=== PATIENT | female | born 1940 | race Caucasian/White ===

== ENCOUNTER 2019-05-05 15:26 | Outpatient (CLI) | payer MEDICARE, SELFPAY ==
--- NOTE | ~2019-05-05 | MM_ITS ---
EXAMINATION: MM screening [facility] BI w verenice HISTORY: Screening mammogram TECHNIQUE: Craniocaudal and mediolateral oblique 3-D tomosynthesis images were obtained and synthetic 2-D images were generated. CAD analysis was submitted and interpreted. COMPARISON: Comparison to multiple prior studies sequentially, with oldest reviewed study dated 07/2013. BREAST PARENCHYMAL COMPOSITION: There are scattered areas of fibroglandular density. FINDINGS: There is no evidence of suspicious mass, calcification, or architectural distortion to sugg est malignancy in either breast. There has been no suspicious interval change. IMPRESSION: 1. No mammographic evidence of malignancy. 2. Recommend routine screening mammography in one year. BI-RADS Category 1: Negative Reviewed, dictated and finalized at location A. K TURNER
== END 2019-05-05 15:27 | disposition home or self-care (01) ==
LOC: ANHIMG 15:32
PROVIDERS: PCP Family Medicine; Visit Provider Family Medicine
DX: Z12.31 Encounter for screening mammogram for malignant neoplasm of breast (principal)
CPT/HCPCS: 77063; 77067

== ENCOUNTER 2020-06-17 14:04 | Outpatient (CLI) | payer MEDICARE, SELFPAY ==
--- NOTE | ~2020-06-17 | DEXA_ITS ---
Bone Density Report Name: Adore Newell Age: 80 Sex: Female Ethnicity: White Date of : 1940 Indication: osteopenia; monitoring treatment; parental hip fracture; cancer; Referring Provider: IVANA, CHASIDY Smith Study: Bone densitometry was performed. Exam Date: June 17, 2020 Accession number: [id number] Bone Density: Region BMD T-score Z-score Classification AP Spine (L1-L4) 0.815 -2.1 0.7 Osteopenia Femoral Neck (Left) 0.634 -1.9 0.5 Osteopenia Total Hip (Left) 0.853 -0.7 1.5 Normal Total Hip Bilateral Avg 0.831 -0.9 1.3 Normal Femoral Neck (Right) 0.697 -1.4 1.0 Osteopenia Total Hip (Right) 0.808 -1.1 1.1 Osteopenia World Health Organization criteria for BMD impression classify patients as: Normal (T-score at or above -1.0), Osteopenia (T-score between -1.0 and -2.5), or Osteoporosis (T-score at or below -2.5). 10-year Fracture Risk: FRAX not reported because: Treated for osteoporosis Previous Exams: Region Exam Age BMD T-score BMD Change BMD Change Date g/cm2 vs Baseline vs Previous AP Spine(L1-L4) 06/17/2020 80 0.815 -2.1 0.072(9.7%)# 0.013(1.6%) 02/19/2018 78 0.802 -2.2 0.059(8.0%)# 0.096(13.5%)# 09/22/2015 75 0.707 -3.1 -0.037(-4.9%)* -0.037(-4.9%)* 05/20/2012 72 0.743 -2.8 Total Hip(Left) 06/17/2020 80 0.853 -0.7 -0.050(-5.5%)# -0.020(-2.3%) 02/19/2018 78 0.873 -0.6 -0.030(-3.3%)# -0.004(-0.4%)# 09/22/2015 75 0.877 -0.5 -0.026(-2.9%) -0.026(-2.9%) 05/20/2012 72 0.903 -0.3 Total Hip(Right) 06/17/2020 80 0.808 -1.1 -0.017(-2.1%)# -0.012(-1.5%) 02/19/2018 78 0.820 -1.0 -0.005(-0.6%)# -0.062(-7.0%)# 09/22/2015 75 0.882 -0.5 0.057(6.9%)* 0.057(6.9%)* 05/20/2012 72 0.826 -1.0 *Denotes significance at 95% confidence level, LSC for AP Spine = 0.022 g/cm2, LSC for Total Hip = 0.027 g/cm2 Clinical Information Provided by Patient: Parent has had a hip fracture Is being treated for osteoporosis Has used the following medications: Fosamax (i.e. alendronate) Has the following medical conditions: Cancer Patient maximum height was 62 Menopause Age: 48 No regular weight bearing exercise Drinks caffeinated beverages Onset of menses at age 10 Number of children 2 Impression: The patient has low bone mass, based on the Total Spine T-score. The patient has risk factors, including: parental hip fracture. No significant bone loss was observed. Discussion: PATIENT UNDE
--- NOTE | ~2020-06-17 | MM_ITS ---
EXAMINATION: MM screening [facility] BI w verenice HISTORY: Screening mammogram TECHNIQUE: Craniocaudal and mediolateral oblique 3-D tomosynthesis images were obtained and synthetic 2-D images were generated. CAD analysis was submitted and interpreted. COMPARISON: 05/05/2019, 02/19/2018, 01/15/2017 bilateral digital screening mammogram examinations BREAST PARENCHYMAL COMPOSITION: There are scattered areas of fibroglandular density. FINDINGS: There is no evidence of suspicious mass, calcification, or architectural distortion to sugg est malignancy in either breast. There has been no suspicious interval change. IMPRESSION: 1. No mammographic evidence of malignancy. 2. Recommend routine screening mammography in one year. BI-RADS Category 1: Negative Reviewed, dictated and finalized at location A.
== END 2020-06-17 14:05 | disposition home or self-care (01) ==
LOC: ANHIMG 14:07
PROVIDERS: PCP Family Medicine; Visit Provider Family Medicine
DX: Z12.31 Encounter for screening mammogram for malignant neoplasm of breast (principal); Z78.0 Asymptomatic menopausal state; M85.88 Other specified disorders of bone density and structure, other site; M85.852 Other specified disorders of bone density and structure, left thigh; M85.851 Other specified disorders of bone density and structure, right thigh
CPT/HCPCS: 77063; 77067; 77080

== ENCOUNTER 2021-08-14 10:02 | Outpatient (CLI) | payer MEDICARE, SELFPAY ==
--- NOTE | ~2021-08-14 | MM_ITS ---
EXAMINATION: MM screening [facility] BI w verenice HISTORY: Screening mammogram TECHNIQUE: Craniocaudal and mediolateral oblique 3-D tomosynthesis images were obtained and synthetic 2-D images were generated. CAD analysis was submitted and interpreted. COMPARISON: 06/27/2020, 05/05/2019 BREAST PARENCHYMAL COMPOSITION: There are scattered areas of fibroglandular density. FINDINGS: There is no suspicious mass, calcification, or architectural distortion to suggest malignan cy in either breast. There has been no suspicious interval change. IMPRESSION: 1. No mammographic evidence of malignancy. 2. Recommend routine screening mammography in one year. BI-RADS Category 1: Negative Reviewed, dictated and finalized at location A.
== END 2021-08-14 10:03 | disposition home or self-care (01) ==
LOC: ANHIMG 10:08
PROVIDERS: PCP Family Medicine; Visit Provider Family Medicine
DX: Z12.31 Encounter for screening mammogram for malignant neoplasm of breast (principal)
CPT/HCPCS: 77063; 77067

== ENCOUNTER 2022-08-22 14:56 | Outpatient (CLI) | payer MEDICARE, SELFPAY ==
--- NOTE | ~2022-08-22 | XR_ITS ---
PA and lateral views of the chest: Comparison: None Findings: Probable nipple shadow right lung base. Lungs are otherwise clear. No effusion or pneumotho rax. Suspected COPD. Cardiomediastinal silhouette is within normal limits. Bones and soft tissues ar e unremarkable. Impression: Probable nipple shadow right lung base, otherwise clear lungs. Consider repeat exam with nipple marke rs as indicated. Suspected COPD. Reviewed, dictated and finalized at location M. Impression: Probable nipple shadow right lung base, otherwise clear lungs. Consider repeat exam with nipple markers as indicated. Suspected COPD.
== END 2022-08-22 14:57 | disposition home or self-care (01) ==
LOC: ANHIMG 15:04
PROVIDERS: PCP Family Medicine; Visit Provider Nurse Practitioner Family
DX: J20.9 Acute bronchitis, unspecified (principal)
CPT/HCPCS: 71046

== ENCOUNTER 2023-01-04 15:13 | Outpatient (CLI) | payer MEDICARE, SELFPAY ==
--- NOTE | ~2023-01-04 | XR_ITS ---
XR chest 2V 01/04/2023 15:36 Indication: Extreme malignant neoplasm of the lung. Procedure: PA and lateral views of the chest Comparison: 08/22/2022 Findings: Nodular density right lower thorax. Recommend correlation with CT chest for further assessm ent. There is atherosclerosis of the aorta. Possible small left pleural effusion. No edema or pneumot horax. There is focal consolidation medially in the left lung base which may represent atelectasis. Impression: 1: Nodular density right lower thorax which may represent prominent nipple shadow, although parenchym al nodules not excluded. Consider correlation with CT chest. 2: Small left pleural effusion. Reviewed, dictated and finalized at location B. Impression: 1: Nodular density right lower thorax which may represent prominent nipple shad ow, although parenchymal nodules not excluded. Consider correlation with CT [facility]. 2: Small left pleural effusion.
== END 2023-01-04 15:14 | disposition home or self-care (01) ==
PROVIDERS: PCP Family Medicine; Visit Provider Family Medicine
DX: Z85.118 Personal history of other malignant neoplasm of bronchus and lung (principal); J90 Pleural effusion, not elsewhere classified
CPT/HCPCS: 71046

== ENCOUNTER 2023-02-20 10:04 | Emergency (ER) | payer MEDICARE, SELFPAY ==
--- NOTE | ~2023-02-20 | XR_ITS ---
EXAMINATION: XR lumbar spine 2-3V DATE: 02/20/2023 10:51 INDICATION: Low back pain TECHNIQUE: Anteroposterior and lateral views of the lumbar spine, and cone-down lateral view of the l umbosacral junction were obtained. COMPARISON: Chest radiograph dated 01/04/2023 FINDINGS: Bone alignment is normal. There is mild loss of vertebral body height at L1 which appears n ew since the comparison examination. Bone alignment is normal. There is mild loss of intervertebral d isc space height at multiple levels in the lumbar spine. There is mild facet joint osteoarthritis at L5-S1. Calcified atherosclerosis is noted. IMPRESSION: 1. Mild loss of vertebral body height at L1 which appears new comparison examination, possibly reflec ting acute compression fracture. Reviewed, dictated and finalized at location B. CT CARE WORKER IMPRESSION: 1. Mild loss of vertebral body height at L1 which appears new comparison examin ation, possibly reflecting acute compression fracture.
[2023-02-20 10:17] VITALS: BP 100/56; PULSE 67; RESP 20; TEMP 36.7; O2SAT 98
--- NOTE | 2023-02-20 10:27 | ED.BACK ---
HPI - Back Pain/Injury General Chief Complaint: Back Pain/Injury Stated Complaint: Fall Time Seen by Provider: 02/20/23 10:28 Source: patient Mode of arrival: ambulatory Limitations: no limitations History of Present Illness HPI Narrative: 83 yo F presents with c/o low back pain. States fell 3 days ago at home. Was rushing to get up out of recliner to answer phone. Ringing phone woke her up from nap. States got up and started walking forward and tangled up in own feet and fell backwards. Denies hitting head. Was able to get up on her own. Since fall pain across back. Ambulatory with steady gait. No weakness/numbness to LEs. No loss of bowel or bladder. Taking tylenol without relief of pain. All systems reviewed and negative except as noted above. Related Data Home Medications Medication Instructions Recorded Confirmed alendronate 70 mg tablet (Fosamax) 70 mg PO WEEKLY 03/05/19 02/20/23 amlodipine 10 mg tablet (Norvasc) 10 mg PO DAILY 03/05/19 02/20/23 aspirin 81 mg chewable tablet 81 mg PO DAILY 03/05/19 02/20/23 atorvastatin 80 mg tablet 80 mg PO DAILY 03/05/19 02/20/23 blood sugar diagnostic (Contour #10 ea 03/05/19 02/20/23 Test Strips) carvedilol 25 mg tablet 25 mg PO Q12H 03/05/19 02/20/23 donepezil 10 mg tablet (Aricept) 10 mg PO ONCE 03/05/19 02/20/23 imipramine HCl 50 mg tablet 50 mg PO BID 03/05/19 02/20/23 lisinopril 10 mg tablet 10 mg PO DAILY 03/05/19 02/20/23 mirtazapine 30 mg tablet 30 mg PO DAILY 03/05/19 02/20/23 temazepam 30 mg capsule 30 mg PO ONCE 03/05/19 02/20/23 Allergies Allergy/AdvReac Type Severity Reaction Status Date / Time oxycodone Allergy Unknown Other Verified 02/20/23 10:11 Review of Systems Review of Systems: CONSTITUTIONAL: Denies fever, chills, or sweats. EYES: Denies visual changes, redness, or discharge. ENT: Denies rhinorrhea, congestion, sore throat, or otalgia. CARDIOVASCULAR: Denies chest pain, palpitations, or edema. RESPIRATORY: Denies cough or dyspnea. GASTROINTESTINAL: Denies abdominal pain, nausea, vomiting, or diarrhea. GENITOURINARY: Denies dysuria or hematuria. SKIN: Denies rash or itching. MUSCULOSKELETAL: reports low back pain. Denies joint pain, or myalgia. NEUROLOGIC: Denies headache, numbness, or weakness. PSYCHIATRIC: Denies anxiety or depression. All other systems reviewed are negative, except as documented in HPI. FORMERLY [facility], [facility] Family History Family History (Updated 07/25/17 @ 10:46 by DOCTOR UNKNOWN) Father Family history of malignant neoplasm, Onset Age: 79 Sibling Family history of malignant neoplasm Other Family history of arthritis Social History Social History Smoking status: Never smoker Alcohol intake: never Comments At time of signature, agree with nursing past medical, surgical, social and family history. There is no relevant family history pertinent to the presenting complaint. Exam Narrative: GENERAL: This is a well-nourished, well-developed patient, in no apparent distress. HEAD: normocephalic, atraumatic. EYES: PERRL. Sclera clear/white. Vision is grossly intact. EARS: External ears normal NOSE: External nose normal THROAT: Mucous membranes moist, posterior pharynx clear. NECK: Neck supple, non-tender without lymphadenopathy, masses or thyromegaly. CARDIOVASCULAR: Regular rate and rhythm without murmurs, gallops, or rubs. RESPIRATORY: Clear to auscultation. Breath sounds equal bilaterally. No wheezes, rales, or rhonchi. SKIN: warm, Dry, intact with no suspicious lesions or rash, good texture and turgor. NEURO: awake, alert, and oriented to person, place and time. There were no obvious focal neurologic abnormalities. EXTREMITIES: No joint tenderness, effusion, or edema noted. BACK: no midline tenderness without deformity. generalized lower muscular tenderness and spasm. Course Course Level of Care: Express Care Visit Vital Signs Vital signs: Vital Signs Temperature 36.7 C 02/20/23 10:
== END 2023-02-20 11:25 | disposition home or self-care (01) ==
PROVIDERS: Emergency Provider Nurse Practitioner Family; PCP Family Medicine
DX: S32.010A Wedge compression fracture of first lumbar vertebra, initial encounter for closed fracture (principal); W19.XXXA Unspecified fall, initial encounter; E78.00 Pure hypercholesterolemia, unspecified; I10 Essential (primary) hypertension; M19.90 Unspecified osteoarthritis, unspecified site; M81.0 Age-related osteoporosis without current pathological fracture; R73.03 Prediabetes; Z79.82 Long term (current) use of aspirin
CPT/HCPCS: 72100; 99213; G0463

== ENCOUNTER 2024-01-16 13:05 | Inpatient (IN) | payer MEDICARE, SELFPAY ==
[2024-01-16] VITALS (10 sets, daily range): BP systolic 114–127; BP diastolic 44–56; PULSE 79–91; RESP 14–24; TEMP 36.6; O2SAT 87–100
--- NOTE | ~2024-01-16 | XR_ITS ---
CHEST RADIOGRAPH, PA AND LATERAL CLINICAL HISTORY: R pleural effusion . COMPARISON: 01/16/2024 TECHNIQUE: PA and lateral views of the chest. FINDINGS Redemonstration of right hilar prominence, unchanged from prior. The remainder of the cardiomediastinal silhouette is otherwise unremarkable. Decreased right-sided pleural effusion when compared with previous examination. Trace left and small right-sided pleural effusion persists. The lungs are otherwise clear. The right lung is fully inflated. IMPRESSION: Trace left and small right-sided pleural effusion. No right-sided pneumothorax following right-sided thoracentesis. Reviewed, dictated and finalized at location A. R
--- NOTE | ~2024-01-16 | US_ITS ---
EXAMINATION: US thoracentesis DATE: 01/17/2024 16:11 INDICATION: pleural effusion TECHNIQUE: The procedure and its risks, benefits, and alternatives were discussed with the patient. P otential risks discussed included bleeding, infection, and pneumothorax. The patient understood the r isks and agreed to proceed. The skin was prepped and draped in sterile fashion. 1% lidocaine was used for local anesthesia. Under ultrasound guidance, a 5 Fr catheter with trochar was advanced into the right pleural effusion. Fluid was aspirated. The catheter was removed, and a dressing was applied. Th ere were no immediate complications. FINDINGS: Ultrasound images demonstrate a right pleural effusion and the catheter within the fluid. IMPRESSION: 1. Successful ultrasound-guided thoracentesis yielding 600 mL of aaron-colored fluid. Reviewed, dictated and finalized at location A. [place] AND PROMOTIONS COORDINATOR
--- NOTE | ~2024-01-16 | XR_ITS ---
EXAMINATION: XR chest 2V DATE: 01/16/2024 15:04 INDICATION: Shortness of breath. TECHNIQUE: Frontal and lateral views of the chest were obtained. COMPARISON: Chest 2 views 01/04/2023, chest CT 07/13/14, lumbar spine radiographs 02/20/2023. FINDINGS: There are moderate-sized right and small left pleural effusions. There are airspace opaciti es at the lung bases. No pneumothorax. The heart size is normal. There is a left posterior diaphragma tic hernia that contained fat on the prior CT. There is a burst fracture of L1. IMPRESSION: 1. Moderate-sized right and small left pleural effusions. 2. Airspace opacities at the lung bases, consistent with atelectasis versus pneumonia. 3. Burst fracture of L1, worsened from 02/20/2023. Reviewed, dictated and finalized at location A. ELER CHANGER IMPRESSION: 1. Moderate-sized right and small left pleural effusions. 2. Airspace opacities at the lung bases, consistent with atelectasis versus pne umonia. 3. Burst fracture of L1, worsened from 02/20/2023.
--- NOTE | ~2024-01-16 | CT_ITS ---
EXAMINATION: CTA chest PE protocol DATE: 01/17/2024 09:43 INDICATION: Hypoxia. TECHNIQUE: Computed tomography angiography (CTA) of the chest was performed with 100 mL Omnipaque-350 intravenous contrast timed to evaluate the pulmonary arteries. Coronal maximum intensity projection 3D-reconstructions were created by the technologist. Automated exposure control and iterative reconst ruction technique were employed. The dose-length product was 194.48 mGy-cm. COMPARISON: Chest CT 07/13/2014, chest 2 views 01/16/2024 FINDINGS: There is mild emphysema. There are changes of right upper lobectomy. There is mild atelecta sis bilaterally. There is chronic mild scarring at left lung apex. There is mild atelectasis bilatera lly. There is a moderate-sized right pleural effusion. There is a small left pleural effusion. There is a left posterior diaphragmatic hernia containing fat. There is right hilar and mediastinal lymphad enopathy. For example, a subcarinal node measures 3.3 x 2.4 cm. The heart size is normal. There is a small pericardial effusion. The central pulmonaries are enlarged, consistent with pulmonary arterial hypertension. There is no pulmonary embolus. There is a fusiform aneurysm of infrarenal aorta measuri ng 4.2 cm. There is a 1.5 cm mass in left adrenal gland. There is a chronic burst fracture of L1 with greater than 4/5 loss of height, retropulsion of bone 8 mm into central spinal canal, and focal kyph osis. There is a chronic compression fracture of T10. IMPRESSION: 1. Right hilar and mediastinal lymphadenopathy suspicious for metastatic disease. 2. Moderate-sized right and small left pleural effusions. 3. Small pericardial effusion. 4. 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 5. No pulmonary embolus. 6. 1.5 cm mass in left adrenal gland, which may be an adenoma or less likely metastatic disease. Reviewed, dictated and finalized at location A. IC AFFAIRS SPECIALIST IMPRESSION: 1. Right hilar and mediastinal lymphadenopathy suspicious for metastatic diseas e. 2. Moderate-sized right and small left pleural effusions. 3. Small pericardial effusion. 4. 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 5. No pulmonary embolus. 6. 1.5 cm mass in left adrenal gland, which may be an adenoma or less likely me tastatic disease.
--- NOTE | 2024-01-16 13:18 | ECG_ITS ---
Test Date: 2024-01-16 13:23:31 Measurements Intervals [place] Rate: 75 P: 73 IL: 154 QRS: -25 QRSD: 100 T: 57 QT: 392 QTc: 439 Interpretive Statements SINUS RHYTHM WITH OCCASIONAL VENTRICULAR PREMATURE COMPLEXES BORDERLINE R WAVE PROGRESSION, ANTERIOR LEADS BASELINE ARTIFACT- I, II, III, AVR, AVL BORDERLINE ECG No previous ECG available for comparison Electronically Signed On 01-16-2024 13:52:52 DOCUMENT IMAGING SPECIALIST by Dawson Jarvis D.O.
[2024-01-16] MEDS: ALBUTEROL SULFATE NEB 2.5 MG/3 ML INH 10 MG INHALATION (13:50)
[2024-01-16] MEDS: IPRATROPIUM BR 0.02% INH SOLN 0.5 MG/2.5 ML VIAL 1 MG INHALATION (13:51)
[2024-01-16 14:05] LABS: Alveolar/Arterial O2 Gradient 82.4 mmHg; Base Excess ABG 1.6 mEq/l (+/-2.0); Fractional Inspired Oxygen 28 %; HCO3 ABG 27.1 mEq/l (22.0-26.0); Oxygen Content ABG 17.9 %vol (16.0-22.0); Oxygen Saturation ABG 91.8 % (95.0-100.0); Oxyhemoglobin 90.9 % THb (90.0-100.0); PO2 FiO2 Ratio Arterial Blood 2.25 %; pH ABG 7.388 (7.350-7.450)
[2024-01-16 14:06] LABS: Device NASAL CANNULA; Modified Allen's Test Pass; Site Drawn LEFT RADIAL
[2024-01-16 14:12] LABS: Basophils Absolute Auto 0.1 K/mm3 (0.0-0.1); Basophils Percent Auto 0.7 % (0.2-1.2); Eosinophils Absolute Auto 0.2 K/mm3 (0-0.3); Hemoglobin 13.6 g/dL (12.0-15.0); Immature Granulocyte Absolute 0.11 K/mm3 (0.00-0.031); Immature Granulocyte Percent A 1.4 % (0-0.5); Lymphocytes Absolute Auto 1.36 K/mm3 (0.9-3.2); Lymphocytes Percent Auto 17.8 % (18.3-44.2); Mean Corpuscular HGB Conc 32.4 g/dl (32-36); Mean Corpuscular Hemoglobin 30.8 pg (26-34); Mean Corpuscular Volume 95.2 fl (80-100); Monocytes Absolute Auto 0.7 K/mm3 (0.1-0.6); Monocytes Percent Auto 8.6 % (2.6-8.5); Neutrophils Absolute Auto 5.3 K/mm3 (1.3-6.7); Neutrophils Percent Auto 69.5 % (45.5-73.1); Platelet Count Result 193 k/mm3 (150-375); Red Blood Count 4.41 M/mm3 (4.2-5.4); Red Cell Distribution Width 13.2 % (11.5-14.5); White Blood Count 7.7 K/mm3 (4.5-10.0)
[2024-01-16 14:22] LABS: Alanine Aminotransferase 27 U/L (6-35); Alkaline Phosphatase 84 U/L (38-126); Anion Gap 9 mmol/L (4-12); Aspartate Amino Transferase 32 U/L (14-36); Bilirubin,Total 0.6 mg/dL (0.2-1.3); Blood Urea Nitrogen 23 mg/dL (7-17); Calcium 9.2 mg/dL (8.4-10.2); Carbon Dioxide 31 mmol/L (22-30); Chloride 94 mmol/L (98-107); Estimated Glomerular Filt Rate 60; Glucose 127 mg/dL (65-110); Potassium 4.3 mmol/L (3.4-5.0); Sodium 134 mmol/L (137-145)
[2024-01-16 14:48] LABS: Influenza A QL RT-PCR Negative (Negative); Influenza B QL RT-PCR Negative (Negative); RSV RNA, RT-PCR Negative (Negative); SARS-CoV-2 RNA PCR Negative (Negative)
[2024-01-16] MEDS: methylPREDNISolone SOD SUCC 125 MG VIAL IV PUSH (16:30)
[2024-01-16 17:03] LABS: Add Urine Microscopic? YES; Appearance Urine Clear (Clear); Bacteria Urine None Seen /hpf; Bilirubin Urine Negative (Negative); Blood Urine Negative (Negative); Color Urine Yellow (Yellow); Glucose Urine UA Negative (Negative); Ketones Urine Negative (Negative); Leukocyte Esterase Ur Trace LEU/UL (Negative); Nitrate Urine Negative (Negative); Non Pathogenic Casts 0-2; Protein Urine Negative (Negative); Specific Grav Ur 1.015 (1.001-1.035); Squamous Epithelial Cell Urine None Seen /hpf (Few); Urobilinogen Urine 0.2 mg/dL (<2.0); WBC Urine 0-5 /hpf (0-3)
--- NOTE | 2024-01-16 17:03 | ED_ITS ---
HPI - SOB/Dyspnea General Chief Complaint: Shortness of Breath/Dyspnea Stated Complaint: dyspnea Time Seen by Provider: 01/16/24 13:24 History of Present Illness HPI Narrative: patient is an 83-year-old female who presents ER with shortness of breath. Worsening over last couple days. Associated with cough and wheezing. Denies fevers or chills or sweats. No chest pain. Hypoxic for EMS and requiring 4 L of nasal cannula oxygen which is new for her. No known sick contacts. Related Data Home Medications Medication Instructions Recorded Confirmed alendronate 70 mg tablet (Fosamax) 70 mg PO WEEKLY 03/05/19 02/20/23 amlodipine 10 mg tablet (Norvasc) 10 mg PO DAILY 03/05/19 02/20/23 aspirin 81 mg chewable tablet 81 mg PO DAILY 03/05/19 02/20/23 atorvastatin 80 mg tablet 80 mg PO DAILY 03/05/19 02/20/23 blood sugar diagnostic (Contour #10 ea 03/05/19 02/20/23 Test Strips) carvedilol 25 mg tablet 25 mg PO Q12H 03/05/19 02/20/23 donepezil 10 mg tablet (Aricept) 10 mg PO ONCE 03/05/19 02/20/23 imipramine HCl 50 mg tablet 50 mg PO BID 03/05/19 02/20/23 lisinopril 10 mg tablet 10 mg PO DAILY 03/05/19 02/20/23 mirtazapine 30 mg tablet 30 mg PO DAILY 03/05/19 02/20/23 temazepam 30 mg capsule 30 mg PO ONCE 03/05/19 02/20/23 Allergies Allergy/AdvReac Type Severity Reaction Status Date / Time oxycodone Allergy Unknown Other Verified 02/20/23 10:11 Review of Systems Review of Systems: All systems reviewed & are unremarkable except as noted in HPI and below Constitutional: Constitutional: Reports no additional constitutional complaints ENT: Reports system reviewed and no additional complaints, except as documented Cardiovascular: Cardiovascular: Reports no additional cardiovascular complaints Respiratory: Respiratory: Reports chest congestion, Reports cough, Reports dyspnea and Reports wheezing Gastrointestinal: Gastrointestinal: Reports no additional gastrointestinal complaints PMFSH Past Medical History Medical History (Updated 01/16/24 @ 19:22 by Bryan Goyal MD) Essential (primary) hypertension History of stroke without residual deficits Mild dementia Family History Family History (Updated 07/25/17 @ 10:46 by DOCTOR UNKNOWN) Father Family history of malignant neoplasm, Onset Age: 79 Sibling Family history of malignant neoplasm Other Family history of arthritis Social History Social History Smoking status: Never smoker Alcohol intake: never Exam Narrative: GENERAL: Well-appearing, well-nourished, and in no acute distress. HEAD: Normocephalic, atraumatic. ENT: Mucous membranes moist. NECK: Supple. CHEST: Clear to auscultation. No respiratory distress. HEART: Regular rate and rhythm. Normal peripheral pulses. ABDOMEN: Soft, nontender, nondistended. EXTREMITIES: Normal range of motion. No edema. SKIN: Warm, dry, no rash. NEURO: Alert and oriented x3. PSYCH: Normal mood and affect. Course Vital Signs Vital signs: Vital Signs Temperature 97.8 F 01/16/24 13:02 Pulse Rate 80 01/16/24 13:02 Respiratory Rate 24 H 01/16/24 13:02 Blood Pressure 114/47 L 01/16/24 13:02 Pulse Oximetry 87 L 01/16/24 13:02 Oxygen Delivery Room Air 01/16/24 13:02 Temperature 97.8 F 01/16/24 13:02 Pulse Rate 88 01/16/24 19:08 Respiratory Rate 14 01/16/24 19:08 Blood Pressure 122/56 L 01/16/24 19:08 Pulse Oximetry 96 01/16/24 19:08 Oxygen Delivery Nasal Cannula 01/16/24 13:14 Oxygen Flow Rate 4 01/16/24 13:14 MDM - SOB/Dyspnea Lab Data 01/16/24 14:05 01/16/24 14:05 Labs: Lab Results 01/16/24 01/16/24 01/16/24 Range/Units 13:45 14:05 16:48 WBC 7.7 (4.5-10.0) K/mm3 RBC 4.41 (4.2-5.4) M/mm3 Hgb 13.6 (12.0-15.0) g/dL Hct 42.0 (37.0-47.0) % MCV 95.2 (80-100) fl MCH 30.8 (26-34) pg MCHC 32.4 (32-36) g/dl RDW 13.2 (11.5-14.5) % Plt Count 193 (150-375) k/mm3 MPV 9.0 (7.4-10.4) fl Immature Gran % (Auto) 1.4 H (0-0.5) % Neut % (Auto) 69.5 (45.5-73.1) % Lymph % (Auto) 17.8 L (18.3-44.2) % [place] % (Auto) 8.6 H (2.6-8.5) % Eos % (Auto) 2.0 (0-4.4) % Baso % (Auto) 0.7 (0.2-1.2) % Lymph # (Auto) 1.36 (0.9-3.2) K/mm3 [place] # (Auto) 0.7 H (0.1-0.6) K/mm3 Eos # (Auto) 0.2 (0-0.3) K/mm3 Baso # (Auto) 0.1 (0.0-0.1) K/mm3 Abs Immat Gran (auto) 0.11 H (0.00-0.031) K/mm3 Absolute Neuts (auto) 5.3 (1.3-6.7) K/mm3 Absolute Nucleated RBC 0.000 (0.0-0.012) K/mm3 Nucleated RBC % 0.0 (0.0-0.2) % Sodium 134 L (137-145) mmol/L Potassium 4.3 (3.4-5.0) mmol/L Chloride 94 L (98-107) mmol/L Carbon Dioxide 31 H (22-30) mmol/L Anion Gap 9 (4-12) mmol/L BUN 23 H (7-17) mg/dL Creatinine 0.90 (0.7-1.0) mg/dL Estim Creat Clear Calc Not Reportable Estimated GFR 60 (59 - ) Glucose 127 H (65-110) mg/dL Calcium 9.2 (8.4-10.2) mg/dL Total Bilirubin 0.6 (0.2-1.3) mg/dL AST 32 (14-36) U/L ALT 27 (6-35) U/L Alkaline Phosphatase 84 (38-126) U/L NT-Pro-B Natriuret Pep 401 H (19.9-100) pg/mL Total Protein 8.0 (6.3-8.2) g/dL Albumin 4.0 (3.5-5.1) g/dL Urine Color Yellow (Yellow) Urine Appearance Clear (Clear) Urine pH 5.0 (5.0-9.0) Ur Specific [employer] 1.015 (1.001-1.035) Urine Protein Negative (Negative) mg/dL Urine Glucose (UA) Negative (Negative) mg/dL Urine Ketones Negative (Negative) mg/dL Ur Blood (Man) Negative (Negative) Urine Nitrate Negative (Negative) Urine Bilirubin Negative (Negative) Urine Urobilinogen 0.2 (<2.0) mg/dL Leukocyte Esterase Rfl Trace H (Negative) SHAUN/UL Urine RBC 3-5 H (0-2) /hpf Urine WBC 0-5 (0-3) /hpf Ur Squamous Epith Cells None seen (Few) /hpf Urine Bacteria None seen /hpf Urine Casts 0-2 Influenza A (RT-PCR) Negative (Negative) Influenza B (RT-PCR) Negative (Negative) RSV (RT-PCR) Negative (Negative) SARS-CoV-2 RNA (RT-PCR) Negative (Negative) ABG Data ABG results: 01/16/24 13:52 Puncture Site Left radial ABG pH 7.388 ABG pCO2 46.0 H ABG pO2 63.0 L ABG PO2/FiO2 Ratio 2.25 ABG HCO3 27.1 H ABG O2 Saturation 91.8 L ABG O2 Content 17.9 ABG Base Excess 1.6 A-a Gradient 82.4 Oxyhemoglobin 90.9 Total Hemoglobin 14.0 O2 Delivery Device Nasal cannula O2 Liters/Min 2.0 FiO2 28 Imaging Data Radiologist's impression: ITS Impressions Chest X-Ray 01/16/24 15:08 IMPRESSION: 1. Moderate-sized right and small left pleural effusions. 2. Airspace opacities at the lung bases, consistent with atelectasis versus pneumonia. 3. Burst fracture of L1, worsened from 02/20/2023. Discharge Plan Discharge Clinical Impression: Bronchitis, Hypoxia Patient Disposition: Still a Patient Condition: Stable
--- NOTE | 2024-01-16 17:07 | PC.NURSE ---
patient given water per verbal from Dr Goyal
[2024-01-16 17:27] LABS: NT Pro B Type Natriuretic Pept 401 pg/mL (19.9-100)
[2024-01-16] MEDS: methylPREDNISolone SOD SUCC 125 MG VIAL 60 MG IV PUSH ×2 (18:18→23:05)
--- NOTE | 2024-01-16 19:34 | ADMGEN ---
This patient, Adore Newell, was admitted to Medical Room 346-01. Patient/family oriented to hospital policies and general routines including ID bracelet, bed and alarms, visiting hours, pain management, procedures, bathroom and other care routines, personal items, smoking policy, room service/diet, and visiting hours. Information on how to activate the Rapid Response Team has been discussed. Patient/Family are encouraged to report perceived risks to care and to ask questions if they do not understand what they are told or what they should do.
--- NOTE | 2024-01-16 20:03 | PM.IMHP ---
H&P: HPI History of Present Illness Date/Time: 01/16/24 20:03 Chief Complaint: sob Narrative: This is an 83-year-old female with past medical history significant for osteoporosis, hypertension, dyslipidemia, history of stroke, mild dementia. Patient presents to the emergency room due to worsening shortness of breath, body aches and pains, night sweats, fevers, chills, cough. preliminary workup was significant for chest x-ray with moderate size right pleural effusion and opacities at lung base. Patient was found to have low pulse ox placed on supplemental oxygen by nasal cannula. Patient has been admitted for further evaluation management and treatment. EXAMINATION: XR chest 2V DATE: 01/16/2024 15:04 INDICATION: Shortness of breath. TECHNIQUE: Frontal and lateral views of the chest were obtained. COMPARISON: Chest 2 views 01/04/2023, chest CT 07/13/14, lumbar spine radiographs 02/20/2023. FINDINGS: There are moderate-sized right and small left pleural effusions. There are airspace opacities at the lung bases. No pneumothorax. The heart size is normal. There is a left posterior diaphragmatic hernia that contained fat on the prior CT. There is a burst fracture of L1. IMPRESSION: 1. Moderate-sized right and small left pleural effusions. 2. Airspace opacities at the lung bases, consistent with atelectasis versus pneumonia. 3. Burst fracture of L1, worsened from 02/20/2023. [facility] Past Medical History Medical History (Updated 01/17/24 @ 00:15 by Gabriel Garzon MD) Essential (primary) hypertension History of stroke without residual deficits Mild dementia Family History Family History (Updated 07/25/17 @ 10:46 by DOCTOR UNKNOWN) Father Family history of malignant neoplasm, Onset Age: 79 Sibling Family history of malignant neoplasm Other Family history of arthritis Social History Social History Smoking status: Former smoker Alcohol intake: never Substance use: never Substance use type: does not use Do You Feel Safe in your Home?: Yes Lack of Transportation: No Lack of Food: Never True Current Housing: I Have Housing Concerned About Future Housing: No Difficulty Paying Gas/Electric Bills: No Difficulty Paying for Meds: No Currently Unemployed: No Education: High School Diploma/GED Difficulty w/ Childcare or Family Care: No Spiritual care concerns: No Meds Home Medications and Allergies Home Medications Medication Instructions Recorded Confirmed Type alendronate 70 mg tablet (Fosamax) 70 mg PO WEEKLY 03/05/19 01/16/24 History amlodipine 10 mg tablet (Norvasc) 10 mg PO DAILY 03/05/19 01/16/24 History aspirin 81 mg chewable tablet 81 mg PO DAILY 03/05/19 01/16/24 History atorvastatin 80 mg tablet 80 mg PO QHS 03/05/19 01/16/24 History carvedilol 25 mg tablet 25 mg PO Q12H 03/05/19 01/16/24 History donepezil 10 mg tablet (Aricept) 10 mg PO QHS 03/05/19 01/16/24 History imipramine HCl 50 mg tablet 50 mg PO BID 03/05/19 01/16/24 History lisinopril 10 mg tablet 10 mg PO DAILY 03/05/19 01/16/24 History mirtazapine 30 mg tablet 15 mg PO QHS 03/05/19 01/16/24 History temazepam 30 mg capsule 15 mg PO QHS 03/05/19 01/16/24 History acetaminophen 325 mg tablet 325 mg PO QHS 01/16/24 01/16/24 History (Tylenol) cholecalciferol (vitamin D3) 50 50 mcg PO 3XW 01/16/24 01/16/24 History mcg (2,000 unit) tablet (Vitamin D3) furosemide 20 mg tablet 30 mg PO DAILY 01/16/24 01/16/24 History loratadine 10 mg tablet (Claritin) 10 mg PO DAILY PRN allergies 01/16/24 01/16/24 History multivitamin 1 tablet PO DAILY 01/16/24 01/16/24 History Allergies Allergy/AdvReac Type Severity Reaction Status Date / Time No Known Allergies Allergy Verified 01/16/24 19:31 Vital Signs Vital Signs - 24 hr 01/16/24 13:02 01/16/24 13:14 01/16/24 13:14 Temperature 97.8 F Pulse Rate 80 Respiratory Rate 24 H Blood Pressure 114/47 L Pulse Oximetry 87 L 95 96 Oxygen Delivery Room Air Nasal Cannula Oxygen Flow Rate 4 01/16/24 13:56 01/16/24 14:49 01/16/24 14:52 Temperature Pulse Rate 79 79 82 Respiratory Rate 18 20 18 Blood Pressure Pulse Oximetry 100 Oxygen Delivery Oxygen Flow Rate 01/16/24 17:06 01/16/24 19:08 Temperature Pulse Rate 80 88 Respiratory Rate 22 H 14 Blood Pressure 122/56 L Pulse Oximetry 99 96 Oxygen Delivery Oxygen Flow Rate Exam Narrative: lying in bed Const: General: comfortable, no acute distress, well developed, alert, awake, ill appearing acutely and average body habitus Nutritional Appearance: average body habitus Orientation/consciousness: patient oriented x3 HENMT: Head: normal to inspection, normocephalic and atraumatic Ears: hearing grossly normal bilaterally Face/Nose/Sinus: normal facial exam Face and sinus: normal facial exam Eyes: General: appearance normal, both eyes and all related structures Pupils: Equal, round and reactive pupils present EOM: EOMs intact bilaterally Neck: Neck: full ROM, no lymphadenopathy and no JVD Thyroid: thyroid normal Lymphatic: no lymphadenopathy noted Resp: Effort & Inspection: normal respiratory effort and able to speak in complete sentences Auscultation: clear to auscultation bilaterally Cardio: Jugular venous distension: no JVD Rate: regular rate Rhythm: regular rhythm Heart sounds: S1 normal heart sound present and S2 normal heart sound present GI: GI Palp: Yes Soft to palpation and Yes No hepatosplenomegaly present : General: Yes deferred Skin: Rashes: no rashes Wounds: no wounds Neuro: General: patient oriented x3 and CN's II-XI intact bilaterally Cranial nerves: Yes CN's II-XII intact bilaterally and Yes Equal, round and reactive pupils present Cognition (Neuro): normal cognition Speech: normal speech Gait exam (Neuro): Normal gait present Motor exam (neuro): 5/5 motor strength present throughout Extrem: General: normal to inspection, full ROM, no joint enlargement and no pedal edema H&P: Results Labs Labs: Short CBC 01/16/24 Range/Units 14:05 WBC 7.7 (4.5-10.0) K/mm3 Hgb 13.6 (12.0-15.0) g/dL Hct 42.0 (37.0-47.0) % Plt Count 193 (150-375) k/mm3 BMP 01/16/24 14:05 Sodium 134 L Potassium 4.3 Chloride 94 L Carbon Dioxide 31 H BUN 23 H Creatinine 0.90 Glucose 127 H Calcium 9.2 Liver Function 01/16/24 Range/Units 14:05 Total Bilirubin 0.6 (0.2-1.3) mg/dL AST 32 (14-36) U/L ALT 27 (6-35) U/L Alkaline Phosphatase 84 (38-126) U/L Albumin 4.0 (3.5-5.1) g/dL Urine 01/16/24 Range/Units 16:48 Urine Color Yellow (Yellow) Urine Appearance Clear (Clear) Urine pH 5.0 (5.0-9.0) Ur Specific [place] 1.015 (1.001-1.035) Urine Protein Negative (Negative) mg/dL Urine Glucose (UA) Negative (Negative) mg/dL Assessment and Plan Assessment and plan (1) Pneumonia: Code(s): J18.9 - Pneumonia, unspecified organism Status: Acute Assessment and Plan: Admit to [facility] tele patient started on Rocephin and Zithromax await cultures (2) Bronchitis: Code(s): J40 - Bronchitis, not specified as acute or chronic Status: Acute Assessment and Plan: breathing treatments (3) Hypoxia: Code(s): R09.02 - Hypoxemia Status: Acute Assessment and Plan: on supplemental oxygen by nasal cannula (4) Compression fracture of L1 lumbar vertebra: Code(s): S32.010A - Wedge compression fracture of first lumbar vertebra, initial encounter for closed fracture Status: Acute Assessment and Plan: unchanged Hospitalist MIPS Advance Care Plan I have confirmed that the patient's Advanced Care Plan is present, code status is documented, or surrogate decision maker is listed in patient medical record.: Yes Medication Reconciliation I have utilized all available resources to obtain, update and review the patients current medications (includes all prescriptions, OTC, herbals, cannabis, and nutritional supplements).: Yes
[2024-01-16] MEDS: ATORVASTATIN 40 MG TABLET 80 MG PO (23:00)
[2024-01-16] MEDS: MIRTAZAPINE SOLTAB 15 MG TAB.DISPER PO (23:01)
[2024-01-16] MEDS: TEMAZEPAM (*CRX) 15 MG CAPSULE PO (23:01)
[2024-01-16] MEDS: DONEPEZIL HCL 10 MG TABLET PO (23:01)
[2024-01-16] MEDS: carvediloL 25 MG TABLET PO (23:01)
[2024-01-16] MEDS: ACETAMINOPHEN 325 MG TABLET 650 MG PO (23:05)
[2024-01-17] VITALS (16 sets, daily range): BP systolic 102–127; BP diastolic 48–76; PULSE 73–92; RESP 16–22; TEMP 36.6–36.7; O2SAT 93–98
[2024-01-17] MEDS: IPRATROPIUM 0.5 MG/ALBUTEROL SULFATE 2.5 MG AMPUL.NEB 3 ML INHALATION ×4 (01:40→20:09)
[2024-01-17] MEDS: cefTRIAXone 2 GM/NS 100 ML 2 GM/100 ML BAG IVPB (04:38)
[2024-01-17] MEDS: AZITHROMYCIN 500 MG/NS 250 ML 500 MG/250 ML BAG 250 MG IVPB (04:39)
[2024-01-17] MEDS: methylPREDNISolone SOD SUCC 125 MG VIAL 60 MG IV PUSH (05:10)
[2024-01-17 09:18] LABS: Hematocrit 42.4 % (37.0-47.0); Mean Corpuscular Hemoglobin 31.3 pg (26-34); Mean Corpuscular Volume 94.6 fl (80-100); Mean Platelet Volume 9.1 fl (7.4-10.4); Platelet Count Result 216 k/mm3 (150-375); Red Blood Count 4.48 M/mm3 (4.2-5.4); Red Cell Distribution Width 13.3 % (11.5-14.5); White Blood Count 5.7 K/mm3 (4.5-10.0)
--- NOTE | 2024-01-17 09:28 | PC.NURSE ---
pt to radiology via wheelchair
[2024-01-17] MEDS: lisinopriL 10 MG TABLET PO (10:08)
[2024-01-17] MEDS: carvediloL 25 MG TABLET PO ×2 (10:09→20:24)
[2024-01-17] MEDS: guaiFENesin 12 HR 600 MG TABCR 1200 MG PO (10:09)
[2024-01-17] MEDS: ASPIRIN 81 MG CHEWABLE TABLET PO (10:09)
[2024-01-17] MEDS: IMIPRAMINE HCL 25 MG TABLET 50 MG PO ×2 (10:09→16:24)
[2024-01-17 10:46] LABS: Alanine Aminotransferase 26 U/L (6-35); Alkaline Phosphatase 76 U/L (38-126); Anion Gap 6 mmol/L (4-12); Aspartate Amino Transferase 35 U/L (14-36); Bilirubin,Total 0.5 mg/dL (0.2-1.3); Blood Urea Nitrogen 23 mg/dL (7-17); Calcium 9.1 mg/dL (8.4-10.2); Carbon Dioxide 30 mmol/L (22-30); Chloride 98 mmol/L (98-107); Estimated Glomerular Filt Rate > 60; Glucose 182 mg/dL (65-110); Potassium 4.4 mmol/L (3.4-5.0); Sodium 134 mmol/L (137-145)
[2024-01-17 11:56] LABS: Albumin Level 3.8 g/dL (3.5-5.1); Amylase 40 U/L (30-110); Bilirubin,Total 0.4 mg/dL (0.2-1.3); Cholesterol 101 mg/dL (0-200); Glucose 221 mg/dL (65-110); Lactate Dehydrogenase 151 U/L (120-246); Triglycerides 81 mg/dL (<150)
[2024-01-17 11:59] LABS: INR 1.1; Prothrombin Time 14.6 Seconds (11.1-14.7)
--- NOTE | 2024-01-17 12:24 | PC.NURSE ---
pt NPO right now for pending thoracentesis, will administer 1200 meds once done with procedure
--- NOTE | 2024-01-17 12:56 | P.CONPL_ITS ---
Assessment and Plan Assessment and plan (1) Pleural effusion: Code(s): J90 - Pleural effusion, not elsewhere classified Status: Acute Assessment and Plan: Moderate right pleural effusion and small left pleural effusion associated with right hilar and mediastinal lymphadenopathy, likely new right lung cancer. She had radiation to the right lower lobe in June. This area is new and worse. 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 He gave radiaton to the RLL. Now, she has new disease in the right hilum and mediastinum. (3) Shortness of Breath: Code(s): R06.02 - Shortness of breath Status: Acute Assessment and Plan: Acute shortness of breath developed yesterday, this was a cause for her admission. She is currently on room air. She feels better compared to admission. (4) History of tobacco use: Code(s): Z87.891 - Personal history of nicotine dependence Status: Acute Assessment and Plan: Smoked from age 15 to 61, 1 ppd, stopped with initial lung cancer diagnosis, 46 pack years (5) Hypoxemia: Code(s): R09.02 - Hypoxemia Status: Acute Assessment and Plan: Has not been on O2 before; now requiring 3 L/min. She will need Home O2 evaluation before discharge. Tapping right lung may improve her hypoxemia. Plan plan: Thoracentesis today with routine labs and cytology. Most of the results will not return until tomorrow or later. Main diagnostic lab that we are of concern is pH; if low, she will need additional management acutely. Continue nebulized bronchodilator for wheezing. She is receiving short acting bronchodilators. IV steroids stopped. She uses an inhaler at home, and I am not sure because she cannot recall the name. She is in between primary care doctors, Dr Romy Hillman moved, and her replacement INDUSTRIAL ENGINEERING TECHNOLOGIST did as well. Dr Per Shea, Rad Oncologist, can not longer provide care due to the patient's insurance restrictions. She will need to establish care with medical oncologist, perhaps Dr Fisher. If pleural fluid cytology is negative for malignancy, she will need a level 7 bronchoscopy with EBUS for diagnosis. We do not offer endobronchial biopsy at [place]; this could be arranged at [facility]. Home O2 evaluation before discharge. I spoke with Dr Per Shea this afternoon, very helpful. [phone] in [place], [place] History of Present Illness History of Present Illness Consult date: 01/17/24 Chief complaint: hypoxia bronchitis Narrative: pt seen Jan 17, 2024 at 13:00 in Room 346 referred by Yara Wheeler APRN NEW: Adore Newell is 83 years old, has hypertension, obstructive sleep apnea on auto PAP, stroke wiht L intracracnial hemorrhage; she has a history of lung cancer 2001 and 2004 with resections at [facility] by Dr. Sachin Suarez, with recurrence of presumed lung cancer found incidentally in Feb 2023 when she fell and broke her back. The lung mass was seen on chest CT. Dr Suarez referred her to Dr Shea, radiation oncology at [facility] in [place], [place]. She had 3 radiation treatments in June 2023. Insurance denied a repeat chest CT after radiation due to being too soon. She uses an inhaler for her breathing, she tells me that it is prescription but she can not remember the name of it About 4 days ago she started wheezing, thought she had allergies. The next day she had increasing shortness of breath. Yesterday she had real trouble her breathing, [facility] Chest x-ray showed a right pleural effusion. She was admitted overnight. Chest CT today shows a moderate right pleural effusion and a small left pleural effusion, right hilar and mediastinal lymphadenopathy suspicious for metastatic disease. She has lost about 30 lb over the last 8 years but no acute weight loss. She is not having any difficulty swallowing. Tobacco: Smoked from age 15 until age 61 with 1st diagnosis of lung cancer, 44 years 1 pack per day. 2018. 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 She worked for [employer] at [employer] 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 There are changes of right upper lobectomy. There is mild atelectasis bilaterally. There is chronic mild scarring at left lung apex. There is mild atelectasis bilaterally. There is a moderate- sized right pleural effusion. There is a small left pleural effusion. There is a left posterior diaphragmatic hernia containing fat. There is right hilar and mediastinal lymphadenopathy. For example, a subcarinal node measures 3.3 x 2.4 cm. The heart size is normal. There is a small pericardial effusion. The central pulmonaries are enlarged, consistent with pulmonary arterial hypertension. There is no pulmonary embolus. 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 There is a 1.5 cm mass in left adrenal gland. There is a chronic burst fracture of L1 with greater than 4/5 loss of height, retropulsion of bone 8 mm into central spinal canal, and focal kyphosis. There is a chronic compression fracture of T10. IMPRESSION: 1. Right hilar and mediastinal lymphadenopathy suspicious for metastatic disease. 2. Moderate-sized right and small left pleural effusions. 3. Small pericardial effusion. 4. 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 5. No pulmonary embolus. 6. 1.5 cm mass in left adrenal gland, which may be an adenoma or less likely metastatic disease. Scarring in the [place] Review of Systems Review of Systems: All systems reviewed & are unremarkable except as noted in HPI and below PMFSH Past Medical History Medical History (Updated 01/17/24 @ 14:47 by Joceline Marion MD) Essential (primary) hypertension History of stroke without residual deficits History of tobacco use Lung cancer Mild dementia Family History Family History (Updated 07/25/17 @ 10:46 by DOCTOR UNKNOWN) Father Family history of malignant neoplasm, Onset Age: 79 Sibling Family history of malignant neoplasm Other Family history of arthritis Social History Social History Smoking status: Former smoker Alcohol intake: never Substance use: never Substance use type: does not use Do You Feel Safe in your Home?: Yes Lack of Transportation: No Lack of Food: Never True Current Housing: I Have Housing Concerned About Future Housing: No Difficulty Paying Gas/Electric Bills: No Difficulty Paying for Meds: No Currently Unemployed: No Education: High School Diploma/GED Difficulty w/ Childcare or Family Care: No Spiritual care concerns: No Meds Home Medications and Allergies Home Medications Medication Instructions Recorded Confirmed Type alendronate 70 mg tablet (Fosamax) 70 mg PO WEEKLY 03/05/19 01/16/24 History amlodipine 10 mg tablet (Norvasc) 10 mg PO DAILY 03/05/19 01/16/24 History aspirin 81 mg chewable tablet 81 mg PO DAILY 03/05/19 01/16/24 History atorvastatin 80 mg tablet 80 mg PO QHS 03/05/19 01/16/24 History carvedilol 25 mg tablet 25 mg PO Q12H 03/05/19 01/16/24 History donepezil 10 mg tablet (Aricept) 10 mg PO QHS 03/05/19 01/16/24 History imipramine HCl 50 mg tablet 50 mg PO BID 03/05/19 01/16/24 History lisinopril 10 mg tablet 10 mg PO DAILY 03/05/19 01/16/24 History mirtazapine 30 mg tablet 15 mg PO QHS 03/05/19 01/16/24 History temazepam 30 mg capsule 15 mg PO QHS 03/05/19 01/16/24 History acetaminophen 325 mg tablet 325 mg PO QHS 01/16/24 01/16/24 History (Tylenol) cholecalciferol (vitamin D3) 50 50 mcg PO 3XW 01/16/24 01/16/24 History mcg (2,000 unit) tablet (Vitamin D3) furosemide 20 mg tablet 30 mg PO DAILY 01/16/24 01/16/24 History loratadine 10 mg tablet (Claritin) 10 mg PO DAILY PRN allergies 01/16/24 01/16/24 History multivitamin 1 tablet PO DAILY 01/16/24 01/16/24 History Allergies Allergy/AdvReac Type Severity Reaction Status Date / Time No Known Allergies Allergy Verified 01/16/24 19:31 Vital Signs Vital Signs - 24 hr 01/16/24 13:02 01/16/24 13:14 01/16/24 13:14 Temperature 36.6 C Pulse Rate 80 Respiratory Rate 24 H Blood Pressure 114/47 L Pulse Oximetry 87 L 95 96 Oxygen Delivery Room Air Nasal Cannula Oxygen Flow Rate 4 01/16/24 13:56 01/16/24 14:49 01/16/24 14:52 Temperature Pulse Rate 79 79 82 Respiratory Rate 18 20 18 Blood Pressure Pulse Oximetry 100 Oxygen Delivery Oxygen Flow Rate 01/16/24 17:06 01/16/24 19:08 01/16/24 20:00 Temperature Pulse Rate 80 88 Respiratory Rate 22 H 14 Blood Pressure 122/56 L Pulse Oximetry 99 96 94 Oxygen Delivery Nasal Cannula Oxygen Flow Rate 3 01/16/24 19:30 01/16/24 23:01 01/16/24 23:01 Temperature 36.6 C Pulse Rate 89 91 91 Respiratory Rate 20 Blood Pressure 127/48 L 118/44 L Pulse Oximetry 95 94 Oxygen Delivery Oxygen Flow Rate 01/17/24 01:40 01/17/24 01:50 01/17/24 05:35 Temperature 36.6 C Pulse Rate 78 77 79 Respiratory Rate 18 18 20 Blood Pressure 123/50 L Pulse Oximetry 96 Oxygen Delivery Oxygen Flow Rate 01/17/24 07:40 01/17/24 07:40 01/17/24 07:52 Temperature Pulse Rate 83 84 Respiratory Rate 18 18 Blood Pressure Pulse Oximetry 94 Oxygen Delivery Nasal Cannula Oxygen Flow Rate 3 01/17/24 10:09 01/17/24 08:00 Temperature Pulse Rate 80 80 Respiratory Rate 18 Blood Pressure Pulse Oximetry 94 Oxygen Delivery Nasal Cannula Oxygen Flow Rate 3 Exam Narrative: GEN: Alert, oriented, not in distress. She is on room air.She is an excellent historain. HEENT: pupils are equal, EOMI, symmetrical face; oral membranes moist, loose dentures upper and lower; Mallampati III airway NECK: Trachea is midline CHEST: Equal air entry, symmetric excursion, decreased breath sounds both bases. No signs of consolidation. Rare wheeze right upper lung field posteriorly. CV: Regular S1S2 no m/g/r ABD : (+) bowel sounds Extremities : no clubbing, cyanosis, or edema PSYCH: normal thought and speech, gait is not tested. Results Laboratory Findings 01/17/24 09:11 01/17/24 11:34 ABG, PT/INR, D-dimer: ABG ABG pH 7.388 (7.350-7.450) 01/16/24 13:52 ABG pCO2 46.0 mmHg (35.0-45.0) H 01/16/24 13:52 ABG pO2 63.0 mmHg (80.0-100.0) L 01/16/24 13:52 ABG O2 Saturation 91.8 % (95.0-100.0) L 01/16/24 13:52 PT/INR, D-dimer PT 14.6 Seconds (11.1-14.7) 01/17/24 11:34 INR 1.1 01/17/24 11:34 Abnormal lab findings: Abnormal Labs 01/16/24 01/16/24 01/16/24 13:45 13:52 14:05 Immature Gran % (Auto) 1.4 H Lymph % (Auto) 17.8 L [place] % (Auto) 8.6 H [place] # (Auto) 0.7 H Abs Immat Gran (auto) 0.11 H ABG pCO2 46.0 H ABG pO2 63.0 L ABG HCO3 27.1 H ABG O2 Saturation 91.8 L Sodium 134 L Chloride 94 L Carbon Dioxide 31 H BUN 23 H Glucose 127 H NT-Pro-B Natriuret Pep 401 H Leukocyte Esterase Rfl Urine RBC 01/16/24 01/17/24 01/17/24 16:48 09:11 11:34 Immature Gran % (Auto) Lymph % (Auto) [place] % (Auto) [place] # (Auto) Abs Immat Gran (auto) ABG pCO2 ABG pO2 ABG HCO3 ABG O2 Saturation Sodium 134 L Chloride Carbon Dioxide BUN 23 H Glucose 182 H 221 H NT-Pro-B Natriuret Pep Leukocyte Esterase Rfl Trace H Urine RBC 3-5 H
--- NOTE | 2024-01-17 14:58 | P.PNIM_ITS ---
Progress Note: A&P Assessment and Plan (1) Acute respiratory failure with hypoxia: Code(s): J96.01 - Acute respiratory failure with hypoxia Status: Acute Assessment and Plan: * SPO2 recorded at 87% * HX of lung cancer with bilateral lobectomies/June 2023 for pin radiation to pulmonary nodule with Dr. Shea in [place] * Secondary to bilateral pleural effusions right worse than the left * CTA negative for PE * Thoracentesis 01/17/2024 * Pleural studies pending * Pulmonology consulted for any further recommendations * will need home oxygen evaluation prior to discharge (2) Lung cancer: Qualifiers: Laterality: right Lung location: unspecified part of lung Qualified Code(s): C34.91 - Malignant neoplasm of unspecified part of right bronchus or lung Code(s): C34.90 - Malignant neoplasm of unspecified part of unspecified bronchus or lung Status: Acute Assessment and Plan: * HX adenocarcinoma 2021 * Left lower lobectomy 2001 * VATS RULobectomy T1N1 squamous cell carcinoma * New nodule treated by Dr. Shea 06/2023 with radiation RLL * new disease in the right hilum and mediastinum. * Pulmonary consulted she was able to speak with Dr. Shea he is unable to treat patient anymore due to her insurance * Will need to establish with new oncologist (Dr Fisher) * likely cause of new pleural effusion * pleural studies pending but PH WNL (3) Pleural effusion: Code(s): J90 - Pleural effusion, not elsewhere classified Status: Acute Assessment and Plan: * Likely secondary to reoccurring lung cancer new leasion noted on CTA * thoracentesis 01/17/24 * pleural studies pending PH WNL * Lasix/spironolactone (4) Compression fracture of L1 lumbar vertebra: Code(s): S32.010A - Wedge compression fracture of first lumbar vertebra, initial encounter for closed fracture Status: Acute Assessment and Plan: * Chronic * Burst frature L1 shows worsening from 2022 * TLSO brace?? (5) Pericardial effusion: Code(s): I31.39 - Other pericardial effusion (noninflammatory) Status: Acute Assessment and Plan: * small pericardial effusion * Echo pending * EKG reviewed Plan Code Status: DNR DVT prophylaxis: SCD's Stress ulcer Prophylaxis: NA Disposition: Patient continues admission for acute respiratory failure with hypoxia secondary to bilateral pleural effusions likely from reoccurent lung cancer. Thoracentesis to be performed today and studies sent. She will need a new PCP and oncologists due to insurance for further treatment of new lesion. She would prefer to return home when medically stable will need home o2 evaluation prior to discharge. Time Spent With Patient Time with patient: 15 - 25 minutes Subjective Date/time seen: 01/17/24 14:58 Interval history: Patient is an 83-year-old female who presented to the emergency department with acute respiratory failure with hypoxia initially admitted with treatment for pneumonia however current evaluation patient being treated for bilateral pleural effusion secondary to recurrent lung cancer. 01/17/2024: Assumed Care Patient states her breathing and SOB has mildly improved since admission. She denied any CP, N/V, fever or chills. I ordered a CTA to r/o PE and further evaluation that showed new new disease in the right hilum and mediastinum. Patient agreed with moving forward with a thoracentesis that will be done later today. Pulmonary consulted for any further recommendations who was able to speak with her recent RAD oncologist from June. Review of Systems Review of Systems: All systems reviewed & are unremarkable except as noted in HPI and below Exam Narrative: * GENERAL: Pleasant Alert and oriented x 3 female. No acute distress. * EYES: EOMI. No scleral icterus. PERRLA. * HEENT: Moist mucous membranes. * LUNGS: Diminished BLL with wheezing throughout. lobectomies of the RUL, use of accessory muscles * CARDIOVASCULAR: Regular rate and rhythm. No murmur. No JVD. S1-S2 * ABDOMEN: Soft, non tenderness and non-distended. No palpable masses. * EXTREMITIES: No edema. Non-tender * SKIN: No rashes or lesions. Skin warm, dry. * NEUROLOGIC: No focal neurological deficits. CN II-XII grossly intact * PSYCHIATRIC: Appropriate mood and affect. Good judgement and insight. Objective Data Vital Signs Vital Signs: Vital Signs - 24 hr 01/16/24 17:06 01/16/24 19:08 01/16/24 20:00 Temperature Pulse Rate 80 88 Respiratory Rate 22 H 14 Blood Pressure 122/56 L Pulse Oximetry 99 96 94 Oxygen Delivery Nasal Cannula Oxygen Flow Rate 3 01/16/24 19:30 01/16/24 23:01 01/16/24 23:01 Temperature 97.9 F Pulse Rate 89 91 91 Respiratory Rate 20 Blood Pressure 127/48 L 118/44 L Pulse Oximetry 95 94 Oxygen Delivery Oxygen Flow Rate 01/17/24 01:40 01/17/24 01:50 01/17/24 05:35 Temperature 97.8 F Pulse Rate 78 77 79 Respiratory Rate 18 18 20 Blood Pressure 123/50 L Pulse Oximetry 96 Oxygen Delivery Oxygen Flow Rate 01/17/24 07:40 01/17/24 07:40 01/17/24 07:52 Temperature Pulse Rate 83 84 Respiratory Rate 18 18 Blood Pressure Pulse Oximetry 94 Oxygen Delivery Nasal Cannula Oxygen Flow Rate 3 01/17/24 10:09 01/17/24 08:00 01/17/24 13:34 Temperature Pulse Rate 80 80 82 Respiratory Rate 18 20 Blood Pressure Pulse Oximetry 94 Oxygen Delivery Nasal Cannula Oxygen Flow Rate 3 01/17/24 13:42 01/17/24 13:00 Temperature 98.1 F Pulse Rate 77 80 Respiratory Rate 18 16 Blood Pressure 102/50 L Pulse Oximetry 97 Oxygen Delivery Oxygen Flow Rate Intake/Output Intake/Output: Intake & Output 01/14/24 01/15/24 01/16/24 01/17/24 23:59 23:59 23:59 23:59 Intake Total 890 Balance 890 Meds/Results Medications: Active Medications Generic Name Dose Route Start Last Admin Trade Name Freq PRN Reason Stop Dose Admin Acetaminophen 650 mg 01/16/24 17:08 01/16/24 23:05 Acetaminophen 325 Mg Tablet PO 650 mg Q4H PRN Administration Mild Pain (1-3) or Fever Albuterol/Ipratropium 3 ml 01/16/24 20:00 01/17/24 13:34 Ipratropium 0.5 Mg/Albuterol Sulfate 2.5 Mg Ampul.Neb 3 Ml INHALATION 3 ml Q6HRT DYLON Administration Amlodipine Besylate 10 mg 01/17/24 12:00 Amlodipine Besylate 10 Mg Tablet PO DAILY@1200 DYLON Aspirin 81 mg 01/17/24 09:00 01/17/24 10:09 Aspirin 81 Mg Chewable Tablet PO 81 mg DAILY DYLON Administration Atorvastatin Calcium 80 mg 01/16/24 22:39 01/16/24 23:00 Atorvastatin 40 Mg Tablet PO 80 mg QHS DYLON Administration Carvedilol 25 mg 01/16/24 21:00 01/17/24 10:09 Carvedilol 25 Mg Tablet PO 25 mg Q12H DYLON Administration Donepezil HCl 10 mg 01/16/24 22:40 01/16/24 23:01 Donepezil Hcl 10 Mg Tablet PO 10 mg QHS DYLON Administration Furosemide 40 mg 01/18/24 09:00 Furosemide Inj 40 Mg/4 Ml Vial IV PUSH DAILY [facility] Ceftriaxone Sodium 2 gm in 100 mls @ 200 mls/hr 01/17/24 04:00 11/08/24 05:08 Rocephin 2 Gm/Ns 100 Ml IVPB Infused Q24H DYLON Infusion Azithromycin 500 mg in 250 mls @ 250 mls/hr 01/17/24 04:00 01/17/24 05:39 Zithromax IVPB Infused Q24H DYLON Infusion Imipramine HCl 50 mg 01/17/24 08:00 01/17/24 10:09 Imipramine Hcl 25 Mg Tablet PO 50 mg BID@0800,1200 DYLON Administration Lisinopril 10 mg 01/17/24 09:00 01/17/24 10:08 Lisinopril 10 Mg Tablet PO 10 mg DAILY DYLON Administration Loratadine 10 mg 01/16/24 22:30 Loratadine 10 Mg Tablet PO DAILY PRN allergies Mirtazapine 15 mg 01/16/24 22:40 01/16/24 23:01 Mirtazapine Soltab 15 Mg Tab.Disper PO 15 mg QHS DYLON Administration Ondansetron HCl 4 mg 01/16/24 17:08 Ondansetron Inj 4 Mg/2 Ml Vial IV PUSH Q4H PRN Nausea Perflutren Lipid Microsphere 0 ml 01/17/24 11:18 Perflutren Lipid Microspheres 1.5 Ml Vial Diluted To 10 Ml Total Volume IV PUSH 01/20/24 11:19 ONCE PRN adequate visualization Protocol Sodium Chloride 6 ml 01/18/24 05:00 Sodium Chlor 3% 15 Ml Neb (Respiratory Therapy) INHALATION 01/20/24 05:01 DAILY@0500 [facility] Temazepam 15 mg 01/16/24 22:40 01/16/24 23:01 Temazepam (*Crx) 15 Mg Capsule PO 15 mg QHS DYLON Administration Radiology Results: ITS Impressions Chest X-Ray 01/16/24 15:08 IMPRESSION: 1. Moderate-sized right and small left pleural effusions. 2. Airspace opacities at the lung bases, consistent with atelectasis versus pneumonia. 3. Burst fracture of L1, worsened from 02/20/2023. Chest CTA 01/17/24 09:47 IMPRESSION: 1. Right hilar and mediastinal lymphadenopathy suspicious for metastatic disease. 2. Moderate-sized right and small left pleural effusions. 3. Small pericardial effusion. 4. 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 5. No pulmonary embolus. 6. 1.5 cm mass in left adrenal gland, which may be an adenoma or less likely metastatic disease. Labs Labs: Laboratory Results - last 24 hr 01/16/24 01/16/24 01/17/24 13:45 16:48 09:11 WBC 5.7 RBC 4.48 Hgb 14.0 Hct 42.4 MCV 94.6 MCH 31.3 MCHC 33.0 RDW 13.3 Plt Count 216 MPV 9.1 PT INR Sodium 134 L Potassium 4.4 Chloride 98 Carbon Dioxide 30 Anion Gap 6 BUN 23 H Creatinine 0.80 Estim Creat Clear Calc Not Reportable Estimated GFR > 60 Glucose 182 H Calcium 9.1 Total Bilirubin 0.5 AST 35 ALT 26 Alkaline Phosphatase 76 Lactate Dehydrogenase NT-Pro-B Natriuret Pep 401 H Total Protein 8.0 Albumin 4.0 Triglycerides Cholesterol Amylase Urine Color Yellow Urine Appearance Clear Urine pH 5.0 Ur Specific [place] 1.015 Urine Protein Negative Urine Glucose (UA) Negative Urine Ketones Negative Ur Blood (Man) Negative Urine Nitrate Negative Urine Bilirubin Negative Urine Urobilinogen 0.2 Leukocyte Esterase Rfl Trace H Urine RBC 3-5 H Urine WBC 0-5 Ur Squamous Epith Cells None seen Urine Bacteria None seen Urine Casts 0-2 01/17/24 11:34 WBC RBC Hgb Hct MCV MCH MCHC RDW Plt Count MPV PT 14.6 INR 1.1 Sodium Potassium Chloride Carbon Dioxide Anion Gap BUN Creatinine Estim Creat Clear Calc Estimated GFR Glucose 221 H Calcium Total Bilirubin 0.4 AST ALT Alkaline Phosphatase Lactate Dehydrogenase 151 NT-Pro-B Natriuret Pep Total Protein 7.0 Albumin 3.8 Triglycerides 81 Cholesterol 101 Amylase 40 Urine Color Urine Appearance Urine pH Ur Specific [place] Urine Protein Urine Glucose (UA) Urine Ketones Ur Blood (Man) Urine Nitrate Urine Bilirubin Urine Urobilinogen Leukocyte Esterase Rfl Urine RBC Urine WBC Ur Squamous Epith Cells Urine Bacteria Urine Casts Quality VTE Prophylaxis VTE prophylaxis: mechanical ordered -Patient's previous records reviewed on admission -ER notes reviewed in detail on admission -discussed all findings and current treatment plan with patient/Family/POA -Consultations reviewed for recommendations -Patient's disposition for safe discharge discussed with director of casework services Dictation performed by [employer] direct speech recognition software, therefore twenty one dealer variants and typographical errors may occur. Hospitalist MIPS Advance Care Plan I have confirmed that the patient's Advanced Care Plan is present, code status is documented, or surrogate decision maker is listed in patient medical record.: Yes Medication Reconciliation I have utilized all available resources to obtain, update and review the patients current medications (includes all prescriptions, OTC, herbals, cannabis, and nutritional supplements).: Yes The patient is not eligible for med reconciliation; the patient is in a emergent medical situation where delaying treatment would jeopardize the patients health.: No
--- NOTE | 2024-01-17 15:35 | PC.NURSE ---
pt to radiology for US procedure
--- NOTE | 2024-01-17 16:20 | PC.NURSE ---
pt returned from thoracentesis, doing well
[2024-01-17] MEDS: amLODIPine BESYLATE 10 MG TABLET PO (16:24)
[2024-01-17 16:36] LABS: pH Pleural Fluid 7.487 (7.210-7.500)
[2024-01-17 17:20] LABS: Appearance Pleural Fluid Cloudy (Clear); Pleural fluid source Pleural fluid
[2024-01-17 17:23] LABS: Color Pleural Fluid Yellow (Colorless)
[2024-01-17 17:24] LABS: Nucleated Cell Pleural Fluid 3114 /uL (0-1000)
[2024-01-17 17:25] LABS: Lymphocytes Pleural Fluid 73 %; Neutrophils Pleural Fluid 9 % (0-25); RBC Pleural Fluid 6000 /uL (0-10000)
[2024-01-17 17:26] LABS: Macrophages Pleural Fluid 18 %
[2024-01-17] MEDS: MIRTAZAPINE SOLTAB 15 MG TAB.DISPER PO (20:24)
[2024-01-17] MEDS: ATORVASTATIN 40 MG TABLET 80 MG PO (20:24)
[2024-01-17] MEDS: DONEPEZIL HCL 10 MG TABLET PO (20:24)
[2024-01-17] MEDS: TEMAZEPAM (*CRX) 15 MG CAPSULE PO (20:24)
[2024-01-17] MEDS: ACETAMINOPHEN 325 MG TABLET 650 MG PO (21:45)
[2024-01-18] VITALS (18 sets, daily range): BP systolic 99–114; BP diastolic 46–48; PULSE 64–87; RESP 16–20; TEMP 36.2–36.4; O2SAT 91–98
--- NOTE | 2024-01-18 | ECHO_ITS ---
Patient Info Name: Adore Newell Age: 84 years : 1940 Gender: Female Ht: 59 in Wt: 120 lbs BSA: 1.52 m2 HR: 77 bpm Heart Rhythm: Sinus Rhythm Technical Quality: Good Exam Date: 01/18/2024 10:56 AM Exam Location: Echo Lab Patient Status: Inpatient Admit Date: 01/17/2024 Staff Ordering Physician: Yara Wheeler APRN Hot Knife Foxing Cutter: Braden Wright RDCS Attending Provider: Yara Wheeler APRN Referring Physician: Liam KAYE; Exam Type: CA echo doppler color flow Study Info Indications - PERICARDIAL EFFUSION Complete two-dimensional, color flow and Doppler transthoracic echocardiogram is performed. Summary 1. Complete two-dimensional, color flow and Doppler transthoracic echocardiogram is performed. 2. Left ventricular chamber dimension is normal. 3. Left ventricular systolic function is normal, estimated at 60-65%. 4. There is no increased left ventricular wall thickness. 5. Left ventricular septal wall motion is normal. 6. The left ventricular diastolic function is grade II diastolic dysfunction. 7. Right ventricular chamber dimension is normal. 8. Right ventricular systolic function is normal. 9. There is mild tricuspid valve regurgitation. 10. Moderate pulmonary hypertension, estimated pulmonary arterial systolic pressure is 59 mmHg. 11. There is mild mitral valve regurgitation. Left Ventricle Left ventricular chamber dimension is normal. Left ventricular systolic function is normal, estimated at 60-65%. There is no increased left ventricular wall thickness. Left ventricular septal wall motion is normal. The left ventricular diastolic function is grade II diastolic dysfunction. Right Ventricle Right ventricular chamber dimension is normal. Right ventricular systolic function is normal. Left Atria Left atrial chamber dimension is mildly enlarged. Right Atria Right atrial chamber dimension is mildly enlarged. Aortic Valve The aortic valve is trileaflet. There is no aortic valve sclerosis. There is no aortic valve stenosis. There is no aortic valve regurgitation. Pulmonic Valve The pulmonic valve is normal. There is no pulmonic valve stenosis. There is no pulmonic regurgitation. Mitral Valve There is no mitral valve stenosis. There is mild mitral valve regurgitation. Tricuspid Valve The tricuspid valve leaflets are normal. There is no significant tricuspid valve stenosis. There is mild tricuspid valve regurgitation. Moderate pulmonary hypertension, estimated pulmonary arterial systolic pressure is 59 mmHg. Pericardium/Pleural The pericardium appears normal. There is no pericardial effusion. Inferior Vena Cava Inferior vena cava is not well visualized. Left Ventricular Outflow Tract Name Value Normal LVOT Doppler LVOT Peak Gradient 4 mmHg LVOT Mean Gradient 2 mmHg LVOT VTI 25 cm LVOT VTI/AV VTI Ratio 0.8 Mitral Valve Name Value Normal MV Doppler MV Decel [place] 838 cm/s2 MV PHT 42 ms MV Area (PHT) 5.3 cm2 4.0-5.0 MV Regurgitation Doppler MR Peak Gradient 98 mmHg MV Diastolic Function MV E Peak Velocity 121 cm/s MV A Peak Velocity 74 cm/s MV E/A 1.6 MV Decel Time 144 ms MV Annular TDI MV E/e' (Septal) 21.6 <=8.0 MV E/e' (Lateral) 16.1 <=8.0 MV E/e' (Average) 18.8 Tricuspid Valve Name Value Normal TV Regurgitation Doppler TR Peak Velocity 349 cm/s TR Peak Gradient 49 mmHg Estimated PAP/RSVP RA Pressure 10 mmHg <=5 PA Systolic Pressure 59 mmHg <36 RV Systolic Pressure 59 mmHg <36 Aortic Valve Name Value Normal AV Doppler AV Peak Velocity 117 cm/s AV Peak Gradient 5 mmHg AV Mean Gradient 3 mmHg AV VTI 31 cm Ventricles Name Value Normal LV Dimensions 2D/MM IVS Diastolic Thickness (2D) 0.9 cm 0.6-1.0 LVID Diastole (2D) 4.0 cm 3.8-5.2 LVIW Diastolic Thickness (2D) 1.1 cm 0.6-0.9 LVID Systole (2D) 2.8 cm 2.2-3.5 LV Mass (2D Cubed) 126.21 g 67.00-162.00 LV Mass Index (2D Cubed) 83 g/m2 43-95 Relative Wall Thickness (2D) 0.55 LV Fractional Shortening/Ejection Fraction 2D/MM LV Fractional Shortening (2D) 30 % 27-45 LV EF (2D Teicholz) 58 % 54-74 LV Diastolic Volume (4C MOD) 67 ml LV EF (4C MOD) 65 % LV Diastolic Volume (2C MOD) 63 ml LV EF (2C MOD) 62 % LV Diastolic Volume (BP MOD) 66 ml 46-106 LV Diastolic Volume Index (BP MOD) 43 ml/m2 29-61 LV Systolic Volume (BP MOD) 24 ml 14-42 LV Systolic Volume Index (BP MOD) 16 ml/m2 8-24 LV EF (BP MOD) 64 % 54-74 LV Diastolic Length (4C) 5.9 cm LV Systolic Length (4C) 4.9 cm LV Stroke Volume (4C MOD) 43 ml Atria Name Value Normal LA Dimensions LA Volume (4C A-L) 40 ml LA Volume (BP A-L) 39 ml RA Dimensions RA Area (4C) 12.9 cm2 <=18.0 Report Signatures
[2024-01-18] MEDS: IPRATROPIUM 0.5 MG/ALBUTEROL SULFATE 2.5 MG AMPUL.NEB 3 ML INHALATION ×3 (02:28→13:15)
[2024-01-18] MEDS: cefTRIAXone 2 GM/NS 100 ML 2 GM/100 ML BAG IVPB (04:01)
[2024-01-18] MEDS: AZITHROMYCIN 500 MG/NS 250 ML 500 MG/250 ML BAG 250 MG IVPB (04:43)
[2024-01-18] MEDS: SODIUM CHLOR 3% 15 ML NEB (RESPIRATORY THERAPY) 6 ML INHALATION (04:50)
[2024-01-18 06:43] LABS: Hemoglobin 12.6 g/dL (12.0-15.0); Mean Corpuscular HGB Conc 32.3 g/dl (32-36); Mean Corpuscular Hemoglobin 31.3 pg (26-34); Mean Platelet Volume 9.3 fl (7.4-10.4); Platelet Count Result 206 k/mm3 (150-375); Red Blood Count 4.02 M/mm3 (4.2-5.4); Red Cell Distribution Width 13.5 % (11.5-14.5); White Blood Count 12.4 K/mm3 (4.5-10.0)
[2024-01-18 06:56] LABS: Alanine Aminotransferase 24 U/L (6-35); Albumin Level 3.4 g/dL (3.5-5.1); Alkaline Phosphatase 75 U/L (38-126); Anion Gap 6 mmol/L (4-12); Aspartate Amino Transferase 31 U/L (14-36); Bilirubin,Total 0.3 mg/dL (0.2-1.3); Blood Urea Nitrogen 34 mg/dL (7-17); Calcium 8.6 mg/dL (8.4-10.2); Carbon Dioxide 31 mmol/L (22-30); Chloride 98 mmol/L (98-107); Estimated Glomerular Filt Rate 53; Glucose 137 mg/dL (65-110); Potassium 4.2 mmol/L (3.4-5.0); Sodium 135 mmol/L (137-145)
[2024-01-18] MEDS: carvediloL 25 MG TABLET PO (09:31)
[2024-01-18] MEDS: ASPIRIN 81 MG CHEWABLE TABLET PO (09:31)
[2024-01-18] MEDS: lisinopriL 10 MG TABLET PO (09:31)
[2024-01-18] MEDS: IMIPRAMINE HCL 25 MG TABLET 50 MG PO ×2 (09:31→13:19)
[2024-01-18] MEDS: FUROSEMIDE INJ 40 MG/4 ML VIAL IV PUSH (09:31)
--- NOTE | 2024-01-18 13:09 | P.PNPL_ITS ---
Progress Note: A&P Assessment and Plan (1) Pleural effusion: Code(s): J90 - Pleural effusion, not elsewhere classified Status: Acute Assessment and Plan: Moderate right pleural effusion and small left pleural effusion associated with right hilar and mediastinal lymphadenopathy, likely new right lung cancer. She had radiation to the right lower lobe in June. This area is new and worse. 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 He gave radiaton to the [facility]. Now, she has new disease in the right hilum and mediastinum. (3) Shortness of Breath: Code(s): R06.02 - Shortness of breath Status: Acute Assessment and Plan: Acute shortness of breath developed 1 day prior to admission; this was a cause for her admission. She is currently on room air. She feels better compared to admission. (4) History of tobacco use: Code(s): Z87.891 - Personal history of nicotine dependence Status: Acute Assessment and Plan: Smoked from age 15 to 61, 1 ppd, stopped with initial lung cancer diagnosis, 46 pack years (5) Hypoxemia: Code(s): R09.02 - Hypoxemia Status: Acute Assessment and Plan: Has not been on O2 before; she required O2 at 3 L/min, weaned off today. Home O2 study now--Shows that she only walked 60 meters, very short distance. Normal is 300 meters Plan Home O2 study now--Shows that she only walked 60 meters, very short distance. Normal is 300 meters. She did not desaturate, does not need o2 to go home. She can be discharged today. No reason for her to stay over the weekend. Can follow up with Dr Fisher for medical oncology. She needs the number for Dr Fisher so she can make an appt. She does not need pulmonary follow up. I called [facility] pharmacy to see what inhaler she takes. It is albuterol, no controller inhaler. She does not need a controller inhaler to go home. I will check the cytology results next week, and contact the patient and have these forwarded to Dr Fisher. Discussed patient's case with Yara Wheeler APRN. Subjective Date/time seen: 01/18/24 13:09 Interval history: 01/17; hospital follow up : She is sitting up in a chair, on room air. Feels 100% better compared to admission. She had 600 ml removed from her right pleural effusion. pH is 7.48, normal, increased wbc 3114, normal < 1000; differential showed 72% lymphocytes which is high and could be compatible with malignancy; 6000 rbc, normal is < 10,000. The remainder of fluid results pending. Cytology will not be completed until next week. 01/17/24; new consult; Adore Newell is 83 years old, has hypertension, obstructive sleep apnea on auto PAP, stroke with L intracranial hemorrhage; she has a history of lung cancer 2001 and [address] [facility] by Dr. Sachin Suarez, with recurrence of presumed lung cancer found incidentally in Feb 2023 when she fell and broke her back. The lung mass was seen on chest CT. Dr Suarez referred her to Dr hSea, radiation oncology at [facility] in [place], [place]. She had 3 radiation treatments in June 2023. Insurance denied a repeat chest CT after radiation due to being too soon. She uses an inhaler for her breathing, she tells me that it is prescription but she can not remember the name of it About 4 days ago she started wheezing, thought she had allergies. The next day she had increasing shortness of breath. Yesterday she had real trouble her breathing, [facility] Chest x-ray showed a right pleural effusion. She was admitted overnight. Chest CT today shows a moderate right pleural effusion and a small left pleural effusion, right hilar and mediastinal lymphadenopathy suspicious for metastatic disease. She has lost about 30 lb over the last 8 years but no acute weight loss. She is not having any difficulty swallowing. Tobacco: Smoked from age 15 until age 61 with 1st diagnosis of lung cancer, 44 years 1 pack per day. 2018. 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 There are changes of right upper lobectomy. There is mild atelectasis bilaterally. There is chronic mild scarring at left lung apex. There is mild atelectasis bilaterally. There is a moderate- sized right pleural effusion. There is a small left pleural effusion. There is a left posterior diaphragmatic hernia containing fat. There is right hilar and mediastinal lymphadenopathy. For example, a subcarinal node measures 3.3 x 2.4 cm. The heart size is normal. There is a small pericardial effusion. The central pulmonaries are enlarged, consistent with pulmonary arterial hypertension. There is no pulmonary embolus. 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 There is a 1.5 cm mass in left adrenal gland. There is a chronic burst fracture of L1 with greater than 4/5 loss of height, retropulsion of bone 8 mm into central spinal canal, and focal kyphosis. There is a chronic compression fracture of T10. IMPRESSION: 1. Right hilar and mediastinal lymphadenopathy suspicious for metastatic disease. 2. Moderate-sized right and small left pleural effusions. 3. Small pericardial effusion. 4. 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 5. No pulmonary embolus. 6. 1.5 cm mass in left adrenal gland, which may be an adenoma or less likely metastatic disease. document embedded image Review of Systems Review of Systems: All systems reviewed & are unremarkable except as noted in HPI and below Exam Narrative: GEN: Alert, oriented, not in distress. She is on room air. HEENT: pupils are equal, EOMI, symmetrical face; oral membranes moist, loose dentures upper and lower CHEST: Equal air entry, symmetric excursion, decreased breath sounds right base. CV: Regular S1S2 no m/g/r ABD : (+) bowel sounds Extremities : no clubbing, cyanosis, or edema PSYCH: normal thought and speech, gait is not tested. Objective Data Vital Signs Vital Signs: Vital Signs - 24 hr 01/17/24 13:34 01/17/24 13:42 01/17/24 16:22 Temperature Pulse Rate 82 77 90 Respiratory Rate 20 18 22 H Blood Pressure 127/76 Pulse Oximetry 96 Oxygen Delivery Oxygen Flow Rate 01/17/24 20:10 01/17/24 20:12 01/17/24 20:20 Temperature Pulse Rate 92 86 Respiratory Rate 21 H 18 Blood Pressure Pulse Oximetry 93 Oxygen Delivery Nasal Cannula Oxygen Flow Rate 3 01/17/24 20:24 01/17/24 20:47 01/18/24 02:29 Temperature 36.7 C Pulse Rate 73 85 75 Respiratory Rate 20 18 Blood Pressure 104/48 L Pulse Oximetry 98 Oxygen Delivery Oxygen Flow Rate 01/18/24 02:38 01/18/24 04:09 01/18/24 04:51 Temperature 36.4 C Pulse Rate 76 79 73 Respiratory Rate 18 16 18 Blood Pressure 113/46 L Pulse Oximetry 97 Oxygen Delivery Oxygen Flow Rate 01/18/24 05:05 01/18/24 07:25 01/18/24 07:25 Temperature Pulse Rate 87 77 77 Respiratory Rate 18 18 18 Blood Pressure Pulse Oximetry 98 Oxygen Delivery Nasal Cannula Oxygen Flow Rate 3 01/18/24 07:35 01/18/24 09:31 01/18/24 08:30 Temperature Pulse Rate 78 78 84 Respiratory Rate 18 18 Blood Pressure Pulse Oximetry 97 Oxygen Delivery Nasal Cannula Oxygen Flow Rate 3 Intake/Output Intake/Output: Intake & Output 01/15/24 01/16/24 01/17/24 01/18/24 23:59 23:59 23:59 23:59 Intake Total 1250 570 Output Total 600 Balance 650 570 Meds/Results Medications: Active Medications Generic Name Dose Route Start Last Admin Trade Name Freq PRN Reason Stop Dose Admin Acetaminophen 650 mg 01/16/24 17:08 01/17/24 21:45 Acetaminophen 325 Mg Tablet PO 650 mg Q4H PRN Administration Mild Pain (1-3) or Fever Albuterol/Ipratropium 3 ml 01/16/24 20:00 01/18/24 07:25 Ipratropium 0.5 Mg/Albuterol Sulfate 2.5 Mg Ampul.Neb 3 Ml INHALATION 3 ml Q6HRT DYLON Administration Amlodipine Besylate 10 mg 01/17/24 12:00 01/17/24 16:24 Amlodipine Besylate 10 Mg Tablet PO 10 mg DAILY@1200 DYLON Administration Aspirin 81 mg 01/17/24 09:00 01/18/24 09:31 Aspirin 81 Mg Chewable Tablet PO 81 mg DAILY DYLON Administration Atorvastatin Calcium 80 mg 01/16/24 22:39 01/17/24 20:24 Atorvastatin 40 Mg Tablet PO 80 mg QHS DYLON Administration Carvedilol 25 mg 01/16/24 21:00 01/18/24 09:31 Carvedilol 25 Mg Tablet PO 25 mg Q12H DYLON Administration Donepezil HCl 10 mg 01/16/24 22:40 01/17/24 20:24 Donepezil Hcl 10 Mg Tablet PO 10 mg QHS DYLON Administration Furosemide 40 mg 01/18/24 09:00 01/18/24 09:31 Furosemide Inj 40 Mg/4 Ml Vial IV PUSH 40 mg DAILY DYLON Administration Ceftriaxone Sodium 2 gm in 100 mls @ 200 mls/hr 01/17/24 04:00 01/18/24 04:31 Rocephin 2 Gm/Ns 100 Ml IVPB Infused Q24H DYLON Infusion Azithromycin 500 mg in 250 mls @ 250 mls/hr 01/17/24 04:00 01/18/24 05:43 Zithromax IVPB Infused Q24H DYLON Infusion Imipramine HCl 50 mg 01/17/24 08:00 01/18/24 09:31 Imipramine Hcl 25 Mg Tablet PO 50 mg BID@0800,1200 DYLON Administration Lisinopril 10 mg 01/17/24 09:00 01/18/24 09:31 Lisinopril 10 Mg Tablet PO 10 mg DAILY DYLON Administration Loratadine 10 mg 01/16/24 22:30 Loratadine 10 Mg Tablet PO DAILY PRN allergies Mirtazapine 15 mg 01/16/24 22:40 01/17/24 20:24 Mirtazapine Soltab 15 Mg Tab.Disper PO 15 mg QHS DYLON Administration Ondansetron HCl 4 mg 01/16/24 17:08 Ondansetron Inj 4 Mg/2 Ml Vial IV PUSH Q4H PRN Nausea Perflutren Lipid Microsphere 0 ml 01/17/24 11:18 Perflutren Lipid Microspheres 1.5 Ml Vial Diluted To 10 Ml Total Volume IV PUSH 01/20/24 11:19 ONCE PRN adequate visualization Protocol Sodium Chloride 6 ml 01/18/24 05:00 01/18/24 04:50 Sodium Chlor 3% 15 Ml Neb (Respiratory Therapy) INHALATION 01/20/24 05:01 6 ml DAILY@0500 DYLON Administration Temazepam 15 mg 01/16/24 22:40 01/17/24 20:24 Temazepam (*Crx) 15 Mg Capsule PO 15 mg QHS DYLON Administration Radiology Results: ITS Impressions Chest CTA 01/17/24 09:47 IMPRESSION: 1. Right hilar and mediastinal lymphadenopathy suspicious for metastatic disease. 2. Moderate-sized right and small left pleural effusions. 3. Small pericardial effusion. 4. 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 5. No pulmonary embolus. 6. 1.5 cm mass in left adrenal gland, which may be an adenoma or less likely metastatic disease. Chest X-Ray 01/17/24 16:06 IMPRESSION: Trace left and small right-sided pleural effusion. No right-sided pneumothorax following right-sided thoracentesis. Thoracentesis Ultrasound 01/17/24 16:14 IMPRESSION: 1. Successful ultrasound-guided thoracentesis yielding 600 mL of aaron-colored fluid. Labs Labs: Laboratory Results - last 24 hr 01/17/24 01/18/24 16:00 06:11 WBC 12.4 H RBC 4.02 L Hgb 12.6 Hct 39.0 MCV 97.0 MCH 31.3 MCHC 32.3 RDW 13.5 Plt Count 206 MPV 9.3 Sodium 135 L Potassium 4.2 Chloride 98 Carbon Dioxide 31 H Anion Gap 6 BUN 34 H D Creatinine 1.00 Estim Creat Clear Calc Not Reportable Estimated GFR 53 L Glucose 137 H Calcium 8.6 Total Bilirubin 0.3 AST 31 ALT 24 Alkaline Phosphatase 75 Total Protein 7.0 Albumin 3.4 L Pleural Fluid Source Pleural fluid Pleural Color Yellow Pleural Appearance Cloudy Pleural pH 7.487 Pleural RBC 6000 Pleural Nuc Cells 3114 H Pleural Neutrophils 9 Pleural Lymphocytes 73 Pleural Macrophages 18
[2024-01-18] MEDS: amLODIPine BESYLATE 10 MG TABLET PO (13:19)
--- NOTE | 2024-01-18 14:02 | PCRCNOTE ---
Patient home O2 evaluation was done 01/18/2024. Patient at rest on room air was 95% and HR 78 , patient walked 200 feet during exercise on room air and was 91% and HR 84 . post test patient was again 95% on room air and HR 78. She did not qualify for home O2.
--- NOTE | 2024-01-18 15:18 | P.DS_ITS ---
DS: Admitting Diagnosis Discharge Date 01/18/2024 Admitting Diagnosis Acute respiratory failure with hypoxia secondary to pleural effusions and pneumonia DS: Discharge Diagnosis Discharge Diagnosis (1) Acute respiratory failure with hypoxia: Code(s): J96.01 - Acute respiratory failure with hypoxia Status: Acute (2) Lung cancer: Qualifiers: Laterality: right Lung location: unspecified part of lung Qualified Co de(s): C34.91 - Malignant neoplasm of unspecified part of right bronchus or lung Code(s): C34.90 - Malignant neoplasm of unspecified part of unspecified bronchus or lung Status: Acute (3) Pleural effusion: Code(s): J90 - Pleural effusion, not elsewhere classified Status: Acute (4) Compression fracture of L1 lumbar vertebra: Code(s): S32.010A - Wedge compression fracture of first lumbar vertebra, initial encounter for closed fracture Status: Acute (5) Pericardial effusion: Code(s): I31.39 - Other pericardial effusion (noninflammatory) Status: Acute DS: Summary Hospital Course Reason for hospitalization: Acute respiratory failure with hypoxia secondary to pleural effusions and pneumonia Hospital Course: patient was an 84-year-old female who presented to the emergency department with complaints of increasing shortness a breath worse with activity upon evaluation patient was found to have bilateral pleural effusions and was in acute respiratory failure with hypoxia and place on supplemental oxygen. patient was admitted for further evaluation and treatment with consult to pulmonology. 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 CTA was performed which showed a new disease in the right hilum and mediastinum. patient was then scheduled for right thoracentesis which yielded 600 mL aaron colored fluid cytology was then sent discussed case with pulmonology due to patient's insurance she has recently lost her previous oncologist as well as primary care physician provided follow-up information to Dr. Fisher office for further treatment she is aware she will need follow-up as soon as possible, PH was WNL. patient had tolerated thoracentesis overall and was weaned off of oxygen when at rest a home O2 eval was completed which showed no need for supplemental oxygen at this time. She was discharged to home with overall improvement to a respiratory status, patient's daughter updated a new finding cytology study still pending at time of discharge. Status at Discharge Functional status at discharge: uses cane/walker Overall status at discharge: patient is back to baseline Time Spent with Patient Time attestation: Total time spent providing and/or coordinating discharge services: Time spent: Greater than 30 minutes Exam Narrative: * GENERAL: Pleasant Alert and oriented x 3 female. No acute distress. * EYES: EOMI. No scleral icterus. PERRLA. * HEENT: Moist mucous membranes. * LUNGS: Diminished BLL with wheezing throughout. lobectomies of the RUL, i mproved * CARDIOVASCULAR: Regular rate and rhythm. No murmur. No JVD. S1-S2 * ABDOMEN: Soft, non tenderness and non-distended. No palpable masses. * EXTREMITIES: No edema. Non-tender * SKIN: No rashes or lesions. Skin warm, dry. * NEUROLOGIC: No focal neurological deficits. CN II-XII grossly intact * PSYCHIATRIC: Appropriate mood and affect. Good judgement and insight. DS: Data Data Completed and Pending Pending studies at discharge: Pending at discharge 01/17/24 11:14 Cytology [PTH] Routine 01/17/24 13:00 Cytology [PTH] Routine Labs on day of discharge: Labs from last 24 hours 01/18/24 01/17/24 01/17/24 06:11 16:00 15:41 WBC 12.4 H RBC 4.02 L Hgb 12.6 Hct 39.0 MCV 97.0 MCH 31.3 MCHC 32.3 RDW 13.5 Plt Count 206 MPV 9.3 Sodium 135 L Potassium 4.2 Chloride 98 Carbon Dioxide 31 H Anion Gap 6 BUN 34 H D Creatinine 1.00 Estim Creat Clear Calc Not Reportable Estimated GFR 53 L Glucose 137 H Calcium 8.6 Total Bilirubin 0.3 AST 31 ALT 24 Alkaline Phosphatase 75 Total Protein 7.0 Albumin 3.4 L Pleural Fluid Source Pleural fluid Pleural Color Yellow Pleural Appearance Cloudy Pleural pH 7.487 Pleural RBC 6000 Pleural Nuc Cells 3114 H Pleural Neutrophils 9 Pleural Lymphocytes 73 Pleural Macrophages 18 Pleural Total Protein Pending Pleural Albumin Pending Pleural LDH Pending Pleural Glucose Pending Pleural Amylase Pending Pleural Cholesterol Pending Pleural Triglycerides Pending Preliminary micro results at discharge 01/17/24 15:41 Anaerobic Culture - Preliminary Pleural Fluid 01/17/24 04:29 Blood Culture - Preliminary Blood 01/17/24 04:29 Blood Culture - Preliminary Blood Imaging Radiologist's impression: Radiology Results: ITS Impressions Chest X-Ray 01/16/24 15:08 IMPRESSION: 1. Moderate-sized right and small left pleural effusions. 2. Airspace opacities at the lung bases, consistent with atelectasis versus pneumonia. 3. Burst fracture of L1, worsened from 02/20/2023. Chest CTA 01/17/24 09:47 IMPRESSION: 1. Right hilar and mediastinal lymphadenopathy suspicious for metastatic disease. 2. Moderate-sized right and small left pleural effusions. 3. Small pericardial effusion. 4. 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 5. No pulmonary embolus. 6. 1.5 cm mass in left adrenal gland, which may be an adenoma or less likely metastatic disease. Discharge Plan Discharge Attending physician on discharge: Gabe Mar Consulting providers: Joceline Marion Discharging Clinician: Yara Wheeler Anticipated Discharge Date/Time: 01/18/24 15:04 Patient Disposition: Home, Self-Care Activity: as tolerated Diet: regular Discharge Instructions: You are being discharged to home after treatment for Pleural Effusions with thoracentesis to the right lung with 600 ML of fluid removed. The fluid has been sent for studies and those finding will be sent to Dr. Fisher with oncology, I have provided his contact information please schedule as soon as possible. There was a potential of new lung cancer seen on your CT report and this will need immediate follow-up. If your symptoms return do no hesitate to seek medical attention because pleural effusions can reoccur. I did perform a home oxygen study and at this time you did not need supplemental oxygen at home. Please review attached education and information regarding your diagnosis and treatment How can you care for yourself at home? ? Keep track of any new symptoms or changes in your symptoms. ? Rest until you feel better. ? Be safe with medicines. Take your medicines exactly as prescribed. Call your doctor if you think you are having a problem with your medicine. ? Do not drive after taking a prescription pain medicine. ? Ensure to follow-up with primary care physician as indicated and provide updated medication list provided to you at discharge. When should you call for help? Call 911 anytime you think you may need emergency care. For example, call if: ? You passed out (lost consciousness). Call your doctor now or seek immediate medical care if: ? You have new symptoms like fever, difficulty breathing, Chest pain, vomiting, or rash. ? You have new or different pain. ? You are confused and are having trouble thinking clearly. ? Your symptoms are getting worse. Watch closely for changes in your health, and be sure to contact your doctor if: ? You do not get better as expected. Patient Instructions: Antibiotic Form, Lung Cancer (DC), Pleural Effusion (DC) Patient Language: Yakut Stand Alone Forms: General Discharge Information Follow-up/Referrals: Adi Fisher MD [Physician] - Call for Appointment (Call for appointment as soon as possible) Discharge Medications: New azithromycin 250 mg tablet 250 mg PO DAILY Qty: 3 0RF amoxicillin-pot clavulanate 875-125 mg tablet 1 tablet PO Q12H Qty: 6 0RF Continued aspirin 81 mg tablet,chewable 81 mg PO DAILY mirtazapine 30 mg tablet 15 mg PO QHS atorvastatin 80 mg tablet 80 mg PO QHS carvedilol 25 mg tablet 25 mg PO Q12H donepezil [Aricept] 10 mg tablet 10 mg PO QHS alendronate [Fosamax] 70 mg tablet 70 mg PO WEEKLY Rx Instructions: mondays lisinopril 10 mg tablet 10 mg PO DAILY imipramine HCl 50 mg tablet 50 mg PO BID Rx Instructions: 0800 and noon amlodipine [Norvasc] 10 mg tablet 10 mg PO DAILY Rx Instructions: at noon temazepam 30 mg capsule 15 mg PO QHS multivitamin Tablet 1 tablet PO DAILY acetaminophen [Tylenol] 325 mg Tablet 325 mg PO QHS furosemide 20 mg tablet 30 mg PO DAILY loratadine [Claritin] 10 mg Tablet 10 mg PO DAILY PRN (Reason: allergies) cholecalciferol (vitamin D3) [Vitamin D3] 50 mcg (2,000 unit) Tablet 50 mcg PO 3XW Rx Instructions: Saturday and Date of admission: 01/17/24 13:37 Primary Care Provider: Soraida Dalton Admitting Provider: Gabe Mar Attending physician on admission: Yara Wheeler Condition: Stable Quality VTE Prophylaxis VTE prophylaxis: mechanical ordered -Patient's previous records reviewed on admission -ER notes reviewed in detail on admission -discussed all findings and current treatment plan with patient/Family/POA -Consultations reviewed for recommendations -Patient's disposition for safe discharge discussed with manager of case management Dictation performed by [employer] direct speech recognition software, therefore drive in theater attendant variants and typographical errors may occur. Hospitalist MIPS Heart Failure (Exclusion) Patient has history of Heart Transplant or Left Ventricular Assistive Device?: No IF YES, STOP HERE Heart Failure (Qualifier) Patient has current or prior documentation of LVEF less than or equal to 40%, or mod/servere depressed LVSF?: No IF NO, STOP HERE
--- NOTE | 2024-01-22 07:51 | PC.NURSE ---
Pt called stating that she has been having diarrhea. She had been told that might be a side effect r/t her antibiotics. Pt stated that she has been taking anti-diarrheals. She wanted to know if she should continue taking more. This RN advised pt that we can't give medical advice without evaluating her. Encouraged pt to call PCP, urgent care or ED if diarrhea continued. Also, encouraged pt to stay hydrated and monitor her stool output. Pt appreciative and stated she would call her PCP.
== END 2024-01-18 16:16 | disposition home or self-care (01) | DRG 193 ==
LOC: ANHED 16:55 → ANH3MED 18:27
PROVIDERS: Student in an Organized Health Care Education/Training Program; Admitting Provider Internal Medicine; Emergency Provider Emergency Medicine; Visit Provider Nurse Practitioner Family
DX: J18.9 Pneumonia, unspecified organism (principal); J96.01 Acute respiratory failure with hypoxia; J90 Pleural effusion, not elsewhere classified; C34.91 Malignant neoplasm of unspecified part of right bronchus or lung; I31.39 Other pericardial effusion (noninflammatory); E78.5 Hyperlipidemia, unspecified; F03.90 Unspecified dementia, unspecified severity, without behavioral disturbance, psychotic disturbance, mood disturbance, and anxiety; G47.33 Obstructive sleep apnea (adult) (pediatric); I10 Essential (primary) hypertension; J40 Bronchitis, not specified as acute or chronic; M81.0 Age-related osteoporosis without current pathological fracture; Z85.118 Personal history of other malignant neoplasm of bronchus and lung; Z90.2 Acquired absence of lung [part of]; Z79.82 Long term (current) use of aspirin; Z20.822 Contact with and (suspected) exposure to COVID-19; Z86.73 Personal history of transient ischemic attack (TIA), and cerebral infarction without residual deficits; Z87.891 Personal history of nicotine dependence; Z99.89 Dependence on other enabling machines and devices
CPT/HCPCS: 32555; 36415; 36600; 71046; 71275; 80053; 81001; 82040; 82042; 82150; 82247; 82465; 82805; 82945; 82947; 83615; 83880; 83986; 84155; 84157; 84311; 84478; 85018; 85025; 85027; 85610; 87015; 87040; 87070; 87075; 87102; 87116; 87205; 87206; 87637; 88108; 88305; 88342; 89051; 93005; 93306; 94618; 94640; 96365; 96367; 96375; 96376; 99285; A9270; G0378; J0456; J0696; J1940; J2919; Q9967

== ENCOUNTER 2024-01-25 09:21 | Observation (INO) | payer MEDICARE, SELFPAY ==
[2024-01-25] VITALS (36 sets, daily range): BP systolic 123–158; BP diastolic 42–100; PULSE 78–103; RESP 17–30; TEMP 36.6–37.1; O2SAT 92–100; BMI 25.3
--- NOTE | ~2024-01-25 | XR_ITS ---
EXAMINATION: XR chest 2V DATE: 01/25/2024 10:04 INDICATION: Shortness of breath. TECHNIQUE: Frontal and lateral views of the chest were obtained. COMPARISON: Chest 2 views 01/17/2024 FINDINGS: There are small pleural effusions. There are airspace opacities at the lung bases. No pneum othorax. The heart size is normal. There is a stable burst fracture in lumbar spine. IMPRESSION: 1. Worsened small pleural effusions. 2. Airspace opacities at the lung bases, consistent with atelectasis versus pneumonia. Reviewed, dictated and finalized at location A. E WATER PLANT OPERATOR IMPRESSION: 1. Worsened small pleural effusions. 2. Airspace opacities at the lung bases, consistent with atelectasis versus pne umonia.
--- NOTE | ~2024-01-25 | XR_ITS ---
EXAMINATION: [id number] Exam Date/Time: 01/25/2024 14:00 CENTER MACHINE OPERATOR HISTORY: s/p thora Comparison: 01/25/2024 at 10:01 AM. RESULT: Lines, tubes, and devices: None. Lungs and pleura: Decreased right costophrenic angle blunting, now minimal. Persistent mild left cos tophrenic angle blunting. No pneumothorax. Bibasilar subsegmental airspace disease. Senescent/emphyse matous change. Cardiothymic silhouette: Stable. Other: No acute osseous or upper abdominal finding. IMPRESSION: No pneumothorax. Decreased, now minimal right pleural effusion. Stable small left pleural effusion. S table bibasilar subsegmental atelectasis, infection not excluded. Reviewed, dictated and finalized at location K. ER MACHINE OPERATOR IMPRESSION: No pneumothorax. Decreased, now minimal right pleural effusion. Stable small le ft pleural effusion. Stable bibasilar subsegmental atelectasis, infection not e xcluded.
--- NOTE | ~2024-01-25 | US_ITS ---
EXAMINATION: US thoracentesis DATE: 01/25/2024 14:15 INDICATION: pleural effusion TECHNIQUE: The procedure and its risks, benefits, and alternatives were discussed with the patient. P otential risks discussed included bleeding, infection, and pneumothorax. The patient understood the r isks and agreed to proceed. The skin was prepped and draped in sterile fashion. 1% lidocaine was used for local anesthesia. Under ultrasound guidance, a 5 Fr catheter with trochar was advanced into the right pleural effusion. Fluid was aspirated. The catheter was removed, and a dressing was applied. Th ere were no immediate complications. FINDINGS: Ultrasound images demonstrate a right pleural effusion and the catheter within the fluid. IMPRESSION: 1. Successful ultrasound-guided thoracentesis yielding 650 mL of aaron-colored fluid. Reviewed, dictated and finalized at location A. SKATING COACH
--- NOTE | ~2024-01-25 | CT_ITS ---
EXAMINATION: CTA chest PE protocol DATE: 01/25/2024 11:17 INDICATION: Shortness of breath. TECHNIQUE: Computed tomography angiography (CTA) of the chest was performed with 100 mL Omnipaque-350 intravenous contrast timed to evaluate the pulmonary arteries. Coronal maximum intensity projection 3D-reconstructions were created by the technologist. Automated exposure control and iterative reconst ruction technique were employed. The dose-length product was 361.91 mGy-cm. COMPARISON: Chest CT 01/17/2024, 07/13/2014 FINDINGS: There are moderate-sized right and small left pleural effusions. There is a left posterior diaphragmatic hernia containing fat. There are changes of right upper lobectomy. There is a 9 mm nodu le in left lung upper lobe, stable from 07/13/2014. There is dependent atelectasis bilaterally. There a re nodules in the thyroid measuring up to 9 mm, likely not clinically significant. There is right hil ar and mediastinal lymphadenopathy. The heart size is normal. There are coronary artery calcification s. There is a small pericardial effusion. There is no pulmonary embolus. There is a 3.2 cm fusiform a neurysm of infrarenal aorta. There is a 1.5 cm mass in left adrenal gland. There is severe cervical s pondylosis and mild thoracic spondylosis. There is a chronic compression fracture of T10. There is a chronic burst fracture of L1. IMPRESSION: 1. No pulmonary embolus. 2. Moderate-sized right and small left pleural effusions. 3. Right hilar and mediastinal lymphadenopathy suspicious for metastatic disease. 4. Stable small pericardial effusion. 5. Stable 1.5 cm mass in left adrenal gland, which may be an adenoma or less likely metastatic diseas e. 6. 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 Reviewed, dictated and finalized at location A. OYEE RELATIONS MANAGER IMPRESSION: 1. No pulmonary embolus. 2. Moderate-sized right and small left pleural effusions. 3. Right hilar and mediastinal lymphadenopathy suspicious for metastatic diseas e. 4. Stable small pericardial effusion. 5. Stable 1.5 cm mass in left adrenal gland, which may be an adenoma or less li wander metastatic disease. 6. 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
--- NOTE | 2024-01-25 09:23 | ECG_ITS ---
Test Date: 2024-01-25 09:27:44 Measurements Intervals [place] Rate: 87 P: -61 [place]: 118 QRS: -1 QRSD: 104 T: 17 QT: 381 QTc: 459 Interpretive Statements SINUS RHYTHM BORDERLINE R WAVE PROGRESSION, ANTERIOR LEADS BASELINE ARTIFACT- I, II, III, AVR, AVL, AVF, V2, V6 BORDERLINE ECG Compared to ECG 01/16/2024 13:23:31 NO SIGNIFICANT CHANGE Electronically Signed On 01-25-2024 16:25:28 [employer]OR ELECT[employer]ICIAN by Dawson Jarvis D.O.
[2024-01-25 09:45] LABS: Basophils Percent Auto 0.5 % (0.2-1.2); Eosinophils Absolute Auto 0.1 K/mm3 (0-0.3); Eosinophils Percent Auto 1.6 % (0-4.4); Hematocrit 40.8 % (37.0-47.0); Hemoglobin 13.5 g/dL (12.0-15.0); Immature Granulocyte Absolute 0.05 K/mm3 (0.00-0.031); Immature Granulocyte Percent A 0.6 % (0-0.5); Lymphocytes Percent Auto 10.4 % (18.3-44.2); Mean Corpuscular HGB Conc 33.1 g/dl (32-36); Mean Corpuscular Hemoglobin 31.1 pg (26-34); Mean Platelet Volume 8.8 fl (7.4-10.4); Monocytes Absolute Auto 0.7 K/mm3 (0.1-0.6); Monocytes Percent Auto 8.1 % (2.6-8.5); Neutrophils Absolute Auto 6.8 K/mm3 (1.3-6.7); Neutrophils Percent Auto 78.8 % (45.5-73.1); Platelet Count Result 188 k/mm3 (150-375); Red Blood Count 4.34 M/mm3 (4.2-5.4); Red Cell Distribution Width 13.2 % (11.5-14.5); White Blood Count 8.6 K/mm3 (4.5-10.0)
[2024-01-25 09:54] LABS: Alanine Aminotransferase 23 U/L (6-35); Alkaline Phosphatase 83 U/L (38-126); Anion Gap 9 mmol/L (4-12); Aspartate Amino Transferase 32 U/L (14-36); Bilirubin,Total 0.7 mg/dL (0.2-1.3); Blood Urea Nitrogen 13 mg/dL (7-17); Calcium 9.1 mg/dL (8.4-10.2); Carbon Dioxide 32 mmol/L (22-30); Chloride 91 mmol/L (98-107); Estimated Glomerular Filt Rate > 60; Glucose 111 mg/dL (65-110); Potassium 3.6 mmol/L (3.4-5.0); Sodium 132 mmol/L (137-145)
--- NOTE | 2024-01-25 10:28 | ED.SOB ---
HPI - SOB/Dyspnea General Chief Complaint: Shortness of Breath/Dyspnea Stated Complaint: SOB Time Seen by Provider: 01/25/24 09:59 History of Present Illness HPI Narrative: 84 year Old female presenting with shortness of breath. Patient was recently admitted after imaging showed new lung cancer and large right pleural effusion. She had a thoracentesis and improved and was able to go home without supplemental oxygen. States that over the last week she has been increasingly short of breath. She has a pulse ox at home and today it was 70 so her daughter called an ambulance. She denies any pain. Related Data Home Medications Medication Instructions Recorded Confirmed alendronate 70 mg tablet (Fosamax) 70 mg PO WEEKLY 03/05/19 01/25/24 amlodipine 10 mg tablet (Norvasc) 10 mg PO DAILY 03/05/19 01/25/24 aspirin 81 mg chewable tablet 81 mg PO DAILY 03/05/19 01/25/24 atorvastatin 80 mg tablet 80 mg PO QHS 03/05/19 01/25/24 carvedilol 25 mg tablet 25 mg PO Q12H 03/05/19 01/25/24 donepezil 10 mg tablet (Aricept) 10 mg PO QHS 03/05/19 01/25/24 imipramine HCl 50 mg tablet 50 mg PO BID 03/05/19 01/25/24 lisinopril 10 mg tablet 10 mg PO DAILY 03/05/19 01/25/24 mirtazapine 30 mg tablet 15 mg PO QHS 03/05/19 01/25/24 temazepam 30 mg capsule 15 mg PO QHS 03/05/19 01/25/24 acetaminophen 325 mg tablet 325 mg PO QHS 01/16/24 01/25/24 (Tylenol) cholecalciferol (vitamin D3) 50 50 mcg PO 3XW 01/16/24 01/25/24 mcg (2,000 unit) tablet (Vitamin D3) furosemide 20 mg tablet 30 mg PO DAILY 01/16/24 01/25/24 loratadine 10 mg tablet (Claritin) 10 mg PO DAILY PRN allergies 01/16/24 01/25/24 multivitamin 1 tablet PO DAILY 01/16/24 01/25/24 Allergies Allergy/AdvReac Type Severity Reaction Status Date / Time No Known Allergies Allergy Verified 01/25/24 09:30 Review of Systems Review of Systems: All systems reviewed & are unremarkable except as noted in HPI and below PMFSH Past Medical History Medical History (Updated 01/30/24 @ 15:13 by Debra Mansfield MD) Bronchitis Cataract Essential (primary) hypertension History of stroke without residual deficits History of tobacco use HLD (hyperlipidemia) HTN (hypertension) Lung cancer x4: 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, right upper lobe squamous cell carcinoma 2004, nodule 2023, January 2024 new disease in right hilum and mediastinum Mild dementia Osteoporosis Surgical History Surgical History (Updated 01/25/24 @ 21:40 by Kristina Shaw APRN) History of lobectomy of lung left lower lobe in 2001, right upper lobe in 2004 Family History Family History Father Family history of malignant neoplasm, Onset Age: 79 Sibling Family history of malignant neoplasm Other Family history of arthritis Social History Social History Smoking status: Former smoker Alcohol intake: never Substance use: never Substance use type: does not use Do You Feel Safe in your Home?: Yes Lack of Transportation: No Lack of Food: Never True Current Housing: I Have Housing Concerned About Future Housing: No Difficulty Paying Gas/Electric Bills: No Difficulty Paying for Meds: No Currently Unemployed: No Education: High School Diploma/GED Difficulty w/ Childcare or Family Care: No Spiritual care concerns: No Exam Narrative: GENERAL: Nontoxic, no acute distress, very pleasant HEAD: Normocephalic, atraumatic. EYES: PERRLA and EOMI. ENT: Mucous membranes moist. NECK: Supple. CHEST: Somewhat coarse breath sounds bilaterally, saturating well on struck the L nasal cannula, able to speak in 4-5 word sentences HEART: Regular rate and rhythm. ABDOMEN: Soft, nontender, nondistended EXTREMITIES: Normal range of motion. No edema. SKIN: Warm, dry, no rash. NEURO: Alert and oriented x3. PSYCH: Normal mood and affect. Course Vital Signs Vital signs: Vital Signs Pulse Rate 87 01/25/24 09:23 Respiratory Rate 17 01/25/24 09:23 Blood Pressure 158/59 H 01/25/24 09:23 Pulse Oximetry 100 01/25/24 09:23 Oxygen Delivery Nasal Cannula 01/25/24 09:23 Oxygen Flow Rate 5 01/25/24 09:23 Temperature 98.7 F 01/25/24 22:00 Pulse Rate 101 H 01/26/24 00:00 Respiratory Rate 18 01/25/24 22:00 Blood Pressure 129/53 L 01/25/24 22:00 Pulse Oximetry 92 01/25/24 22:00 Oxygen Delivery Nasal Cannula 01/25/24 21:51 Oxygen Flow Rate 2 01/25/24 21:51 Fraction of Inspired Oxygen 28 01/25/24 21:51 MDM - SOB/Dyspnea MDM Narrative Medical decision making narrative: 84-year-old female presenting with shortness of breath. Hypoxic on room air, saturating well on [address] of the chest shows recurrent pleural effusions, greater on the right. No pulmonary embolus. Patient received an ultrasound-guided thoracentesis with drainage of 650 cc. On returning, patient was taken off her oxygen but immediately decided to the 80s. She requires admission for further management at this point. She is agreeable with this plan. I spoke with the hospitalist who has accepted her for admission. Differential Diagnosis Differential diagnosis: Likely acute exacerbation of chronic obstructive airways disease, congestive heart failure, community acquired pneumonia, pulmonary embolism and other (Pleural effusions) Medical Records Attestation: I reviewed the patient's medical records. Lab Data Attestation: I reviewed the patient's lab results. 01/25/24 09:41 01/25/24 09:41 Labs: Lab Results 01/25/24 01/25/24 01/25/24 Range/Units 09:40 09:41 10:44 WBC 8.6 (4.5-10.0) K/mm3 RBC 4.34 (4.2-5.4) M/mm3 Hgb 13.5 (12.0-15.0) g/dL Hct 40.8 (37.0-47.0) % MCV 94.0 (80-100) fl MCH 31.1 (26-34) pg MCHC 33.1 (32-36) g/dl RDW 13.2 (11.5-14.5) % Plt Count 188 (150-375) k/mm3 MPV 8.8 (7.4-10.4) fl Immature Gran % (Auto) 0.6 H (0-0.5) % Neut % (Auto) 78.8 H (45.5-73.1) % Lymph % (Auto) 10.4 L (18.3-44.2) % [place] % (Auto) 8.1 (2.6-8.5) % Eos % (Auto) 1.6 (0-4.4) % Baso % (Auto) 0.5 (0.2-1.2) % Lymph # (Auto) 0.90 (0.9-3.2) K/mm3 [place] # (Auto) 0.7 H (0.1-0.6) K/mm3 Eos # (Auto) 0.1 (0-0.3) K/mm3 Baso # (Auto) 0.0 (0.0-0.1) K/mm3 Abs Immat Gran (auto) 0.05 H (0.00-0.031) K/mm3 Absolute Neuts (auto) 6.8 H (1.3-6.7) K/mm3 Absolute Nucleated RBC 0.000 (0.0-0.012) K/mm3 Nucleated RBC % 0.0 (0.0-0.2) % PT 14.2 (11.1-14.7) Seconds INR 1.1 APTT 30.3 (22.3-36.8) Seconds Sodium 132 L (137-145) mmol/L Potassium 3.6 (3.4-5.0) mmol/L Chloride 91 L (98-107) mmol/L Carbon Dioxide 32 H (22-30) mmol/L Anion Gap 9 (4-12) mmol/L BUN 13 D (7-17) mg/dL Creatinine 0.80 (0.7-1.0) mg/dL Estim Creat Clear Calc Not Reportable Estimated GFR > 60 (59 - ) Glucose 111 H (65-110) mg/dL Calcium 9.1 (8.4-10.2) mg/dL Total Bilirubin 0.7 (0.2-1.3) mg/dL AST 32 (14-36) U/L ALT 23 (6-35) U/L Alkaline Phosphatase 83 (38-126) U/L Troponin I 0.032 (0.000-0.034) ng/mL NT-Pro-B Natriuret Pep 560 H (19.9-100) pg/mL Total Protein 7.0 (6.3-8.2) g/dL Albumin 4.0 (3.5-5.1) g/dL Influenza A (RT-PCR) Negative (Negative) Influenza B (RT-PCR) Negative (Negative) RSV (RT-PCR) Negative (Negative) SARS-CoV-2 RNA (RT-PCR) Negative (Negative) 01/25/24 Range/Units 13:28 WBC (4.5-10.0) K/mm3 RBC (4.2-5.4) M/mm3 Hgb (12.0-15.0) g/dL Hct (37.0-47.0) % MCV (80-100) fl MCH (26-34) pg MCHC (32-36) g/dl RDW (11.5-14.5) % Plt Count (150-375) k/mm3 MPV (7.4-10.4) fl Immature Gran % (Auto) (0-0.5) % Neut % (Auto) (45.5-73.1) % Lymph % (Auto) (18.3-44.2) % [place] % (Auto) (2.6-8.5) % Eos % (Auto) (0-4.4) % Baso % (Auto) (0.2-1.2) % Lymph # (Auto) (0.9-3.2) K/mm3 [place] # (Auto) (0.1-0.6) K/mm3 Eos # (Auto) (0-0.3) K/mm3 Baso # (Auto) (0.0-0.1) K/mm3 Abs Immat Gran (auto) (0.00-0.031) K/mm3 Absolute Neuts (auto) (1.3-6.7) K/mm3 Absolute Nucleated RBC (0.0-0.012) K/mm3 Nucleated RBC % (0.0-0.2) % PT (11.1-14.7) Seconds INR APTT (22.3-36.8) Seconds Sodium (137-145) mmol/L Potassium (3.4-5.0) mmol/L Chloride (98-107) mmol/L Carbon Dioxide (22-30) mmol/L Anion Gap (4-12) mmol/L BUN (7-17) mg/dL Creatinine (0.7-1.0) mg/dL Estim Creat Clear Calc Estimated GFR (59 - ) Glucose (65-110) mg/dL Calcium (8.4-10.2) mg/dL Total Bilirubin (0.2-1.3) mg/dL AST (14-36) U/L ALT (6-35) U/L Alkaline Phosphatase (38-126) U/L Troponin I 0.033 (0.000-0.034) ng/mL NT-Pro-B Natriuret Pep (19.9-100) pg/mL Total Protein (6.3-8.2) g/dL Albumin (3.5-5.1) g/dL Influenza A (RT-PCR) (Negative) Influenza B (RT-PCR) (Negative) RSV (RT-PCR) (Negative) SARS-CoV-2 RNA (RT-PCR) (Negative) Imaging Data Radiologist's impression: ITS Impressions Chest X-Ray 01/25/24 10:19 IMPRESSION: 1. Worsened small pleural effusions. 2. Airspace opacities at the lung bases, consistent with atelectasis versus pneumonia. Chest CTA 01/25/24 11:20 IMPRESSION: 1. No pulmonary embolus. 2. Moderate-sized right and small left pleural effusions. 3. Right hilar and mediastinal lymphadenopathy suspicious for metastatic disease. 4. Stable small pericardial effusion. 5. Stable 1.5 cm mass in left adrenal gland, which may be an adenoma or less likely metastatic disease. 6. 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 Thoracentesis Ultrasound 01/25/24 14:16 IMPRESSION: 1. Successful ultrasound-guided thoracentesis yielding 650 mL of aaron-colored fluid. Chest X-Ray 01/25/24 14:20 IMPRESSION: No pneumothorax. Decreased, now minimal right pleural effusion. Stable small left pleural effusion. Stable bibasilar subsegmental atelectasis, infection not excluded. Critical Care Time Critical Care Time Critical Care Time: Yes Total Critical Care Time: 32 Discharge Plan Discharge Clinical Impression: Acute respiratory failure with hypoxia, Pleural effusion, Lung cancer Patient Disposition: Still a Patient Condition: Stable
[2024-01-25] MEDS: SODIUM CHLORIDE 0.9% IV 1,000 ML 999 ML IV CONT (10:34)
[2024-01-25] MEDS: IPRATROPIUM BR 0.02% INH SOLN 0.5 MG/2.5 ML VIAL INHALATION ×2 (10:38→15:54)
[2024-01-25] MEDS: ALBUTEROL SULFATE NEB 2.5 MG/3 ML INH 5 MG INHALATION ×2 (10:38→15:54)
[2024-01-25 11:25] LABS: Influenza A QL RT-PCR Negative (Negative); Influenza B QL RT-PCR Negative (Negative); RSV RNA, RT-PCR Negative (Negative); SARS-CoV-2 RNA PCR Negative (Negative)
[2024-01-25 11:33] LABS: INR 1.1; Prothrombin Time 14.2 Seconds (11.1-14.7)
[2024-01-25 11:34] LABS: NT Pro B Type Natriuretic Pept 560 pg/mL (19.9-100); Partial Thromboplastin Time 30.3 Seconds (22.3-36.8); Troponin I 0.032 ng/mL (0.000-0.034)
--- NOTE | 2024-01-25 13:03 | ECG_ITS ---
Test Date: 2024-01-25 13:28:52 Measurements Intervals [place] Rate: 97 P: -76 [place]: 122 QRS: -9 QRSD: 101 T: 50 QT: 364 QTc: 464 Interpretive Statements SINUS RHYTHM BORDERLINE R WAVE PROGRESSION, ANTERIOR LEADS BORDERLINE ST-T WAVE ABNORMALITY- HIGH LATERAL LEADS BASELINE ARTIFACT- I, II, III, AVR, AVL, AVF, V2 BORDERLINE ECG Compared to ECG 01/25/2024 09:27:44 NO SIGNIFICANT CHANGE Electronically Signed On 01-25-2024 16:33:56 BUCKLE GLUER by Dawson Jarvis D.O.
[2024-01-25 13:52] LABS: Troponin I 0.033 ng/mL (0.000-0.034)
--- NOTE | 2024-01-25 14:41 | PC.NURSE ---
patient oxygen dropped to 87% without activity on room air. MD Mansfield notified and patient placed back on 1L [place].
--- NOTE | 2024-01-25 16:23 | ECG_ITS ---
Test Date: 2024-01-25 16:42:19 Measurements Intervals [place] Rate: 96 P: -61 [place]: 121 QRS: -12 QRSD: 100 T: 43 QT: 365 QTc: 463 Interpretive Statements SINUS RHYTHM BORDERLINE R WAVE PROGRESSION, ANTERIOR LEADS BASELINE ARTIFACT- I, III, AVR, AVL BORDERLINE ECG Compared to ECG 01/25/2024 13:28:52 NO SIGNIFICANT CHANGE Electronically Signed On 01-25-2024 16:46:10 DRAW FURNACE TENDER by Dawson Jarvis D.O.
--- NOTE | 2024-01-25 16:40 | P.HP_ITS ---
H&P: HPI History of Present Illness Date/Time: 01/25/24 16:40 Chief Complaint: Shortness of Breath Narrative: 84 y/o F presents here with shortness of breath with PMH of lung cancer, HTN, CVA without residual deficits, former smoker, and mild dementia. The patient presents here from home for further evaluation of shortness of breath. The patient was recently admitted here [facility] for shortness of breath and hypoxia. She was found to have bilateral pleural effusions and pneumonia. She has a history of lung cancer s/p left lower lobe lobectomy in 2001, pathology showed moderately differentiated adenocarcinoma. Then underwent a right upper lobe lobectomy in 2004, pathology showed squamous cell carcinoma. She then developed a new lesion in February of 2023 which was incidentally discovered post fall, underwent radiation x3 in June 2023. CTA from this admission showed new disease in the right hilum and mediastinum. The patient was referred to Natalia, was previously seeing Erick LARSEN out of [facility] for her oncology care. However due to insurance reasons she can no longer see this provider. She also underwent a right thoracentesis which yielded 600 mL of aaron colored fluid. Pneumonia was treated with antibiotic course. Respiratory status improved, patient was able to be weaned off supplemental O2 and she was discharged home with pathology pending. 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 She is returning today due to recurrent shortness of breath. CXR showed worsened small pleural effusions and airspace opacities at the lung base. CTA of the chest showed a recurrent moderate sized right pleural effusion and a small left pleural effusion. Patient underwent a thoracentesis from the emergency department in the hopes the hypoxia would resolve, despite thoracentesis yielding 650 mL the patient desatted to the mid 80s on room air. Patient has been able to be weaned from 5L to 2L nasal cannula. Initial VS at presentation: 98.4? F, HR 87, RR 17, 158/59, and 100% on 5L NC. ED workup showed: No leukocytosis, no anemia, normal coags, sodium 132, creatinine 0.8 and GFR >60, BNP 560 (within normal limits for age), and initial troponin was 0.032, viral PCR negative. 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, right upper lobe squamous cell carcinoma 2004, nodule 2023, January 2024 new disease in right hilum and mediastinum Mild dementia Osteoporosis Surgical History Surgical History (Updated 01/25/24 @ 21:40 by Kristina Shaw APRN) History of lobectomy of lung left lower lobe in 2001, right upper lobe in 2004 Family History Family History Father Family history of malignant neoplasm, Onset Age: 79 Sibling Family history of malignant neoplasm Other Family history of arthritis Social History Social History Smoking status: Former smoker Alcohol intake: never Substance use: never Substance use type: does not use Do You Feel Safe in your Home?: Yes Lack of Transportation: No Lack of Food: Never True Current Housing: I Have Housing Concerned About Future Housing: No Difficulty Paying Gas/Electric Bills: No Difficulty Paying for Meds: No Currently Unemployed: No Education: High School Diploma/GED Difficulty w/ Childcare or Family Care: No Spiritual care concerns: No Meds Home Medications and Allergies Home Medications Medication Instructions Recorded Confirmed Type alendronate 70 mg tablet (Fosamax) 70 mg PO WEEKLY 03/05/19 01/25/24 History amlodipine 10 mg tablet (Norvasc) 10 mg PO DAILY 03/05/19 01/25/24 History aspirin 81 mg chewable tablet 81 mg PO DAILY 03/05/19 01/25/24 History atorvastatin 80 mg tablet 80 mg PO QHS 03/05/19 01/25/24 History carvedilol 25 mg tablet 25 mg PO Q12H 03/05/19 01/25/24 History donepezil 10 mg tablet (Aricept) 10 mg PO QHS 03/05/19 01/25/24 History imipramine HCl 50 mg tablet 50 mg PO BID 03/05/19 01/25/24 History lisinopril 10 mg tablet 10 mg PO DAILY 03/05/19 01/25/24 History mirtazapine 30 mg tablet 15 mg PO QHS 03/05/19 01/25/24 History temazepam 30 mg capsule 15 mg PO QHS 03/05/19 01/25/24 History acetaminophen 325 mg tablet 325 mg PO QHS 01/16/24 01/25/24 History (Tylenol) cholecalciferol (vitamin D3) 50 50 mcg PO 3XW 01/16/24 01/25/24 History mcg (2,000 unit) tablet (Vitamin D3) furosemide 20 mg tablet 30 mg PO DAILY 01/16/24 01/25/24 History loratadine 10 mg tablet (Claritin) 10 mg PO DAILY PRN allergies 01/16/24 01/25/24 History multivitamin 1 tablet PO DAILY 01/16/24 01/25/24 History Allergies Allergy/AdvReac Type Severity Reaction Status Date / Time No Known Allergies Allergy Verified 01/25/24 09:30 Vital Signs Vital Signs - 24 hr 01/25/24 09:23 01/25/24 09:30 01/25/24 10:17 Temperature 98.4 F Pulse Rate 87 Respiratory Rate 17 Blood Pressure 158/59 H Pulse Oximetry 100 97 Oxygen Delivery Nasal Cannula Nasal Cannula Oxygen Flow Rate 5 3 Fraction of Inspired Oxygen 01/25/24 10:38 01/25/24 10:38 01/25/24 10:54 Temperature Pulse Rate 84 85 Respiratory Rate 24 H 30 H Blood Pressure Pulse Oximetry 98 Oxygen Delivery Nasal Cannula Oxygen Flow Rate 2 Fraction of Inspired Oxygen 28 01/25/24 12:49 01/25/24 09:31 01/25/24 09:32 Temperature Pulse Rate 101 H 88 88 Respiratory Rate 26 H 27 H 21 H Blood Pressure 146/50 H 157/61 H Pulse Oximetry 95 100 100 Oxygen Delivery Oxygen Flow Rate Fraction of Inspired Oxygen 01/25/24 09:46 01/25/24 09:50 01/25/24 10:06 Temperature Pulse Rate 87 85 87 Respiratory Rate 24 H 25 H 25 H Blood Pressure 144/52 H Pulse Oximetry 99 100 99 Oxygen Delivery Oxygen Flow Rate Fraction of Inspired Oxygen 01/25/24 10:15 01/25/24 10:16 01/25/24 10:17 Temperature Pulse Rate 88 86 87 Respiratory Rate 22 H 22 H 24 H Blood Pressure 130/54 L 126/54 L Pulse Oximetry 99 98 98 Oxygen Delivery Oxygen Flow Rate Fraction of Inspired Oxygen 01/25/24 10:30 01/25/24 10:31 01/25/24 12:27 Temperature Pulse Rate 86 87 97 Respiratory Rate 23 H 23 H 20 Blood Pressure 134/51 L 141/58 H Pulse Oximetry 97 98 94 Oxygen Delivery Oxygen Flow Rate Fraction of Inspired Oxygen 01/25/24 13:15 01/25/24 13:31 01/25/24 13:46 Temperature 98.3 F Pulse Rate 98 98 96 Respiratory Rate 24 H 20 24 H Blood Pressure 148/57 H 156/53 H 151/54 H Pulse Oximetry 93 93 95 Oxygen Delivery Oxygen Flow Rate Fraction of Inspired Oxygen 01/25/24 14:30 01/25/24 14:40 01/25/24 15:01 Temperature Pulse Rate 94 98 92 Respiratory Rate 24 H 22 H 18 Blood Pressure 152/59 H 127/100 H 153/54 H Pulse Oximetry 98 95 93 Oxygen Delivery Oxygen Flow Rate Fraction of Inspired Oxygen 01/25/24 15:16 01/25/24 15:55 01/25/24 15:55 Temperature Pulse Rate 96 96 Respiratory Rate 23 H 20 Blood Pressure 148/65 H Pulse Oximetry 96 95 Oxygen Delivery Nasal Cannula Oxygen Flow Rate 2 Fraction of Inspired Oxygen 28 01/25/24 16:11 Temperature Pulse Rate 97 Respiratory Rate 24 H Blood Pressure Pulse Oximetry Oxygen Delivery Oxygen Flow Rate Fraction of Inspired Oxygen Exam Const: General: no acute distress Other: , female, nontoxic appearance, frail HENMT: Face/Nose/Sinus: Normal nares present Mouth: Yes moist mucous membranes Other: Nasal cannula in place. Eyes: General: appearance normal, both eyes and all related structures Sclera: sclerae normal Pupils: Equal, round and reactive pupils present EOM: EOMs intact bilaterally Resp: Other: Faint unilateral wheeze on the right and conversational dyspnea. Dyspnea resides with breast, no accessory muscle use. No crackles or other adventitious lung sounds. Cardio: Rate: regular rate Rhythm: regular rhythm Other: S1-S2 present without murmur, rub, ectopy GI: Other: Abdomen soft, nondistended, nontender. Normoactive bowel sounds in all quadrants. Skin: General skin exam: normal color and no rashes or lesions noted Wounds: no wounds Neuro: Speech: normal speech Motor exam (neuro): 5/5 motor strength present throughout Sensory Exam: normal sensation Other: A&O x4 Extrem: General: normal to inspection Psych: Mental Status: mental status grossly normal Affect: normal affect Other: Good insight judgment, pleasant H&P: Results Labs Labs: Short CBC 01/25/24 Range/Units 09:41 WBC 8.6 (4.5-10.0) K/mm3 Hgb 13.5 (12.0-15.0) g/dL Hct 40.8 (37.0-47.0) % Plt Count 188 (150-375) k/mm3 BMP 01/25/24 09:41 Sodium 132 L Potassium 3.6 Chloride 91 L Carbon Dioxide 32 H BUN 13 D Creatinine 0.80 Glucose 111 H Calcium 9.1 Cardiac Enzymes 01/25/24 01/25/24 Range/Units 09:40 13:28 Troponin I 0.032 0.033 (0.000-0.034) ng/mL Liver Function 01/25/24 Range/Units 09:41 Total Bilirubin 0.7 (0.2-1.3) mg/dL AST 32 (14-36) U/L ALT 23 (6-35) U/L Alkaline Phosphatase 83 (38-126) U/L Albumin 4.0 (3.5-5.1) g/dL Assessment and Plan Assessment and plan (1) Acute respiratory failure with hypoxia: Code(s): J96.01 - Acute respiratory failure with hypoxia Status: Acute Assessment and Plan: - initially requiring 5L, post-thoracentesis patient was mid 80's on RA. Now requiring 2L NC. - CXR: 1. Worsened small pleural effusions. 2. Airspace opacities at the lung bases, consistent with atelectasis versus pneumonia. - CTA Chest: 1. No pulmonary embolus. 2. Moderate-sized right and small left pleural effusions. 3. Right hilar and mediastinal lymphadenopathy suspicious for metastatic disease. 4. Stable small pericardial effusion. 5. Stable 1.5 cm mass in left adrenal gland, which may be an adenoma or less likely metastatic disease. 6. 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 - pulmonary consulted, patient has had 2 recurrent pleural effusions in 2 weeks. Spoke with Saulo LARSEN vis phone call to discuss case, recommended transfer for Pluer[facility] given recent pathology and reoccurrence. Will discuss this with the patient. - troponin: 0.032 -> 0.033 -> 0.046, suspect mild bump secondary to hypoxia. no active CP. - suspect patient will need home O2 evaluation at discharge (2) Lung cancer: Qualifiers: Laterality: right Lung location: unspecified part of lung Qualified Code(s): C34.91 - Malignant neoplasm of unspecified part of right bronchus or lung Code(s): C34.90 - Malignant neoplasm of unspecified part of unspecified bronchus or lung Status: Acute Assessment and Plan: - history: adenocarcinoma with left lower lobectomy 2001 VATS RUL Lobectomy T1N1 squamous cell carcinoma 2004 new nodule treated by Dr. Shea 06/2023 with radiation RLL - CTA chest, previous (01/17/24): new disease in the right hilum and mediastinum. - pathology from thoracentesis on 01/20/24: Metastatic squamous cell carcinoma consistent with cervical primary site, positive for KB-EP for and CK7 - will need follow-up with new oncologist Natalia LARSEN, oncology consulted. Has appt on 01/27 - pulmonary consulted and recommended transfer for PleurX (3) Pleural effusion: Code(s): J90 - Pleural effusion, not elsewhere classified Status: Acute Assessment and Plan: - CXR pre-thoracentesis: 1. Worsened small pleural effusions. 2. Airspace opacities at the lung bases, consistent with atelectasis versus pneumonia. - CXR post-thoracentesis 1. No pneumothorax. Decreased, now minimal right pleural effusion. Stable small left pleural effusion. Stable bibasilar subsegmental atelectasis, infection not excluded. - thoracentesis performed on 01/24 (2nd in 2 weeks), yielded 650 mL of aaron colored fluid (4) HTN (hypertension): Qualifiers: Hypertension type: primary hypertension Qualified Code(s): I10 - Essential (primary) hypertension Code(s): I10 - Essential (primary) hypertension Status: Acute Assessment and Plan: - chronic, currently 123/42 - continue home medications: Amlodipine, Lasix, carvedilol, lisinopril - monitor Plan The patient has been accepted at [facility] to their oncology team, spoke with hospitalist Enedelia Mehta MD. Awaiting bed assignment. Patient notified. Diet: Heart healthy GI Prophylaxis: Not currently indicated DVT Prophylaxis: SCDs Lines: Peripheral Code Status: Full code Quality VTE Prophylaxis VTE prophylaxis: mechanical ordered Hospitalist MIPS Advance Care Plan I have confirmed that the patient's Advanced Care Plan is present, code status is documented, or surrogate decision maker is listed in patient medical record.: Yes Medication Reconciliation I have utilized all available resources to obtain, update and review the p atients current medications (includes all prescriptions, OTC, herbals, cannabis, and nutritional supplements).: Yes
[2024-01-25 17:03] LABS: Troponin I 0.046 ng/mL (0.000-0.034)
--- NOTE | 2024-01-25 17:42 | PC.NURSE ---
This patient, Adore Newell, was admitted to Medical Room 259-. Patient/family oriented to hospital policies and general routines including ID bracelet, bed and alarms, visiting hours, pain management, procedures, bathroom and other care routines, personal items, smoking policy, room service/diet, and visiting hours. Information on how to activate the Rapid Response Team has been discussed. Patient/Family are encouraged to report perceived risks to care and to ask questions if they do not understand what they are told or what they should do.
[2024-01-25] MEDS: ATORVASTATIN 40 MG TABLET 80 MG PO (22:42)
[2024-01-25] MEDS: DONEPEZIL HCL 10 MG TABLET PO (22:42)
[2024-01-25] MEDS: carvediloL 25 MG TABLET PO (22:42)
[2024-01-25] MEDS: TEMAZEPAM (*CRX) 15 MG CAPSULE 30 MG PO (22:42)
[2024-01-25] MEDS: MIRTAZAPINE SOLTAB 15 MG TAB.DISPER PO (22:42)
[2024-01-25] MEDS: ACETAMINOPHEN 325 MG TABLET 650 MG PO (22:50)
[2024-01-26] VITALS: PULSE 101
--- NOTE | 2024-01-26 12:35 | P.TS_ITS ---
Transfer Discharge Sum: Prov Provider Date of admission: 01/25/24 15:33 Primary care physician: Soraida Dalton Admitting clinician: Gary Andrade MD Attending physician on admission: Gary Andrade Consults: 01/25/24 Consult to Physician Routine Comment: Exchange consulted at 1815 on 01/25/24. DAMIEN CRUZ Consulting Provider: Adi Fisher gas treater/ group to consult: Oncology Reason for consultation: Recent pleural effusion x2, pathology showing metastatic SCC Has provider been notified: Yes Consult to Physician Routine Comment: Provider consulted at 1805 on 01/25/24. DAMIEN CRUZ Consulting Provider: Jonah Logan gas treater/ group to consult: Pulmonary Reason for consultation: Recurrent pleural effusion, pathology showing metastatic SCC Has provider been notified: Yes Attending physician on discharge: Gary Andrade Discharging clinician: Kristina Shaw Anticipated date of transfer: 01/25/24 Receiving physician/facility: [facility] DS: Admitting Diagnosis Discharge Date 01/26/24 Admitting Diagnosis Pleural Effusion, Shortness of Breath DS: Discharge Diagnosis Discharge Diagnosis Plan Malignant pleural effusion, acute hypoxic respiratory failure, shortness of breath Transfer Discharge Sum: Med Medications Active and Home Medications: Home Medications alendronate 70 mg tablet (Fosamax) 70 mg PO WEEKLY 03/05/19 [History Confirmed 01/25/24] amlodipine 10 mg tablet (Norvasc) 10 mg PO DAILY 03/05/19 [History Confirmed 01/25/24] aspirin 81 mg chewable tablet 81 mg PO DAILY 03/05/19 [History Confirmed 01/25/24] atorvastatin 80 mg tablet 80 mg PO QHS 03/05/19 [History Confirmed 01/25/24] carvedilol 25 mg tablet 25 mg PO Q12H 03/05/19 [History Confirmed 01/25/24] donepezil 10 mg tablet (Aricept) 10 mg PO QHS 03/05/19 [History Confirmed 01/25/24] imipramine HCl 50 mg tablet 50 mg PO BID 03/05/19 [History Confirmed 01/25/24] lisinopril 10 mg tablet 10 mg PO DAILY 03/05/19 [History Confirmed 01/25/24] mirtazapine 30 mg tablet 15 mg PO QHS 03/05/19 [History Confirmed 01/25/24] temazepam 30 mg capsule 15 mg PO QHS 03/05/19 [History Confirmed 01/25/24] acetaminophen 325 mg tablet (Tylenol) 325 mg PO QHS 01/16/24 [History Confirmed 01/25/24] cholecalciferol (vitamin D3) 50 mcg (2,000 unit) tablet (Vitamin D3) 50 mcg PO 3XW 01/16/24 [History Confirmed 01/25/24] furosemide 20 mg tablet 30 mg PO DAILY 01/16/24 [History Confirmed 01/25/24] loratadine 10 mg tablet (Claritin) 10 mg PO DAILY PRN allergies 01/16/24 [History Confirmed 01/25/24] multivitamin 1 tablet PO DAILY 01/16/24 [History Confirmed 01/25/24] Transfer Discharge Sum: Hosp Hospital Course Hospital course: 84 y/o F presents here with shortness of breath with PMH of lung cancer, HTN, CVA without residual deficits, former smoker, and mild dementia. The patient presents here from home for further evaluation of shortness of breath. The patient was recently admitted here [facility] for shortness of breath and hypoxia. She was found to have bilateral pleural effusions and pneumonia. She has a history of lung cancer s/p left lower lobe lobectomy in 2001, pathology showed moderately differentiated adenocarcinoma. Then underwent a right upper lobe lobectomy in 2004, pathology showed squamous cell carcinoma. She then developed a new lesion in February of 2023 which was incidentally discovered post fall, underwent radiation x3 in June 2023. CTA from this admission showed new disease in the right hilum and mediastinum. The patient was referred to [facility], was previously seeing Erick LARSEN out [facility] for her oncology care. However due to insurance reasons she can no longer see this provider. She also underwent a right thoracentesis which yielded 600 mL of aaron colored fluid. Pneumonia was treated with antibiotic course. Respiratory status improved, patient was able to be weaned off supplemental O2 and she was discharged home with pathology pending. 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 She is returning today due to recurrent shortness of breath. CXR showed worsened small pleural effusions and airspace opacities at the lung base. CTA of the chest showed a recurrent moderate sized right pleural effusion and a small left pleural effusion. Patient underwent a thoracentesis from the emergency department in the hopes the hypoxia would resolve, despite thoracentesis yielding 650 mL the patient desatted to the mid 80s on room air. Patient has been able to be weaned from 5L to 2L nasal cannula. 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 Procedures: Successful ultrasound-guided thoracentesis yielding 650 mL of aaron-colored fluid. Hospital Course: Despite successful thoracentesis, the patient continue to have 80 new supplemental O2 requirement (2L NC). Oncology and pulmonology were consulted. Spoke with pulmonology, Saulo LARSEN, who was able to consult via phone call. Recommended transfer for PleurX given new malignant pleural effusion. Transfer call placed to [facility] given the patient is going to establish care with Natalia LARSEN (practicing at [facility] and [facility]) for her oncology care. The patient was accepted by the hospitalist, Tyson LARSEN, to their oncology team. Condition at Transfer: The patient was transferred and stable condition and remained on 2L NC. Time Spent with Patient Time attestation: Total time spent providing and/or coordinating transfer services: Total time spent: Less than 30 minutes Exam Const: General: no acute distress Other: , female, nontoxic appearance, frail HENMT: Face/Nose/Sinus: Normal nares present Mouth: Yes moist mucous membranes Other: Nasal cannula in place. Eyes: General: appearance normal, both eyes and all related structures Sclera: sclerae normal Pupils: Equal, round and reactive pupils present EOM: EOMs intact bilaterally Resp: Other: Faint unilateral wheeze on the right and conversational dyspnea. Dyspnea resides with breast, no accessory muscle use. No crackles or other adventitious lung sounds. Cardio: Rate: regular rate Rhythm: regular rhythm Other: S1-S2 present without murmur, rub, ectopy GI: Other: Abdomen soft, nondistended, nontender. Normoactive bowel sounds in all quadrants. Skin: General skin exam: normal color and no rashes or lesions noted Wounds: no wounds Neuro: Speech: normal speech Motor exam (neuro): 5/5 motor strength present throughout Sensory Exam: normal sensation Other: A&O x4 Extrem: General: normal to inspection Psych: Mental Status: mental status grossly normal Affect: normal affect Other: Good insight judgment, pleasant DS: Data Data Completed and Pending Labs on day of discharge: Labs from last 24 hours 01/25/24 01/25/24 16:32 13:28 Troponin I 0.046 H* D 0.033 Imaging Radiologist's impression: EXAMINATION: XR chest 2V DATE: 01/25/2024 10:04 FINDINGS: There are small pleural effusions. There are airspace opacities at the lung bases. No pneumothorax. The heart size is normal. There is a stable burst fracture in lumbar spine. IMPRESSION: 1. Worsened small pleural effusions. 2. Airspace opacities at the lung bases, consistent with atelectasis versus pneumonia. EXAMINATION: CTA chest PE protocol DATE: 01/25/2024 11:17 INDICATION: Shortness of breath. COMPARISON: Chest CT 01/17/2024, 07/13/2014 FINDINGS: There are moderate-sized right and small left pleural effusions. There is a left posterior diaphragmatic hernia containing fat. There are changes of right upper lobectomy. There is a 9 mm nodule in left lung upper lobe, stable from 07/13/2014. There is dependent atelectasis bilaterally. There are nodules in the thyroid measuring up to 9 mm, likely not clinically significant. There is right hilar and mediastinal lymphadenopathy. The heart size is normal. There are coronary artery calcifications. There is a small pericardial effusion. There is no pulmonary embolus. 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 There is a 1.5 cm mass in left adrenal gland. There is severe cervical spondylosis and mild thoracic spondylosis. There is a chronic compression fracture of T10. There is a chronic burst fracture of L1. IMPRESSION: 1. No pulmonary embolus. 2. Moderate-sized right and small left pleural effusions. 3. Right hilar and mediastinal lymphadenopathy suspicious for metastatic disease. 4. Stable small pericardial effusion. 5. Stable 1.5 cm mass in left adrenal gland, which may be an adenoma or less likely metastatic disease. 6. 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 EXAMINATION: US thoracentesis DATE: 01/25/2024 14:15 INDICATION: pleural effusion TECHNIQUE: The procedure and its risks, benefits, and alternatives were discussed with the patient. Potential risks discussed included bleeding, infection, and pneumothorax. The patient understood the risks and agreed to proceed. The skin was prepped and draped in sterile fashion. 1% lidocaine was used for local anesthesia. Under ultrasound guidance, a 5 Fr catheter with trochar was advanced into the right pleural effusion. Fluid was aspirated. The catheter was removed, and a dressing was applied. There were no immediate complications. FINDINGS: Ultrasound images demonstrate a right pleural effusion and the catheter within the fluid. IMPRESSION: 1. Successful ultrasound-guided thoracentesis yielding 650 mL of aaron-colored fluid. EXAMINATION: [id number] Exam Date/Time: 01/25/2024 14:00 CARBIDE OPERATOR HISTORY: s/p thora Comparison: 01/25/2024 at 10:01 AM. RESULT: Lines, tubes, and devices: None. Lungs and pleura: Decreased right costophrenic angle blunting, now minimal. Persistent mild left costophrenic angle blunting. No pneumothorax. Bibasilar subsegmental airspace disease. Senescent/emphysematous change. Cardiothymic silhouette: Stable. Other: No acute osseous or upper abdominal finding. IMPRESSION: No pneumothorax. Decreased, now minimal right pleural effusion. Stable small left pleural effusion. Stable bibasilar subsegmental atelectasis, infection not excluded.
== END 2024-01-26 04:14 | disposition short-term general hospital (02) ==
LOC: ANHED 11:07 → ANH2MED 17:15
PROVIDERS: Emergency Medicine; Admitting Provider Internal Medicine; Emergency Provider Emergency Medicine; Visit Provider Internal Medicine
DX: J96.01 Acute respiratory failure with hypoxia (principal); J91.0 Malignant pleural effusion; Z85.118 Personal history of other malignant neoplasm of bronchus and lung; Z90.2 Acquired absence of lung [part of]; I10 Essential (primary) hypertension; F03.A0 Unspecified dementia, mild, without behavioral disturbance, psychotic disturbance, mood disturbance, and anxiety; M81.0 Age-related osteoporosis without current pathological fracture; E78.5 Hyperlipidemia, unspecified; Z87.891 Personal history of nicotine dependence; Z86.73 Personal history of transient ischemic attack (TIA), and cerebral infarction without residual deficits; Z20.822 Contact with and (suspected) exposure to COVID-19; Z79.82 Long term (current) use of aspirin; Z79.899 Other long term (current) drug therapy
CPT/HCPCS: 32555; 36415; 71046; 71275; 80053; 83880; 84484; 85025; 85610; 85730; 87637; 93005; 94640; 96360; 99285; A9270; G0378; J7030; Q9967